=== PATIENT | male | born 1940 | race Caucasian/White ===

== ENCOUNTER 2017-08-20 21:59 | Inpatient (IN) | payer MEDICARE, MEDICAID ==
[2017-08-20 23:44] LABS: Troponin I 0.021 ng/mL (< 0.028)
[2017-08-21 02:28] LABS: Troponin I 0.016 ng/mL (< 0.028)
[2017-08-21] MEDS ORDERED: hydrALAZINE 20 MG/ML VIAL SLOW IVP PRN (07:36)
[2017-08-21] MEDS ORDERED: Ondansetron HCl/PF 4 MG/2 ML Vial IVP PRN (07:36)
[2017-08-21] MEDS ORDERED: Sodium Chloride 0.65% Nasal 44 ML BOT EA NARE PRN (07:36)
[2017-08-21] MEDS ORDERED: Senokot 8.6 MG TAB PO PRN (07:36)
[2017-08-21] MEDS ORDERED: Dextrose 50% Abboject 50 ML SYRINGE SLOW IVP PRN (07:36)
[2017-08-21] MEDS ORDERED: Mag-Al 1200 mg/1200 mg/30 ML UDCUP PO PRN (07:36)
[2017-08-21] MEDS ORDERED: Ondansetron ODT 4 MG TAB PO PRN (07:36)
[2017-08-21] MEDS ORDERED: Dextrose 5% in Water 1,000 ML IV PRN (07:36)
[2017-08-21] MEDS ORDERED: Artificial Tears 18 DROP/0.9 ML EA EYE PRN (07:36)
[2017-08-21] MEDS ORDERED: Loratadine 10 MG TAB PO PRN (07:36)
[2017-08-21] MEDS ORDERED: Zolpidem Tartrate 5 MG TAB PO PRN (07:36)
[2017-08-21] MEDS ORDERED: Milk Of Magnesia 30 ML UDCUP PO PRN (07:36)
[2017-08-21] MEDS ORDERED: Acetaminophen 325 MG TAB PO PRN (07:36)
[2017-08-21] MEDS ORDERED: Loperamide HCl 2 MG CAP PO PRN (07:36)
[2017-08-21] MEDS ORDERED: Chloraseptic Spray 180 ml Bottle PO PRN (07:36)
[2017-08-21] MEDS ORDERED: Nitroglycerin 0.4 MG TAB (25 Tab Bottle) SL PRN (07:36)
[2017-08-21] MEDS ORDERED: HumaLOG 300 UNITS/3 ML VIAL SC PRN (07:36)
[2017-08-21] MEDS ORDERED: Eucerin (Mineral Oil/Petrolatum,White) 30 gm Jar TOP PRN (07:36)
[2017-08-21 08:14] LABS: #Eosinphils 0.1 thou/uL (0.0-0.7); #Lymphocytes 1.2 thou/uL (1.20-3.40); #Monocytes 0.4 thou/uL (0.11-0.59); #Neutrophils 3.8 thou/uL (1.40-6.50); %Basophils 0.6 % (0.0-1.0); %Eosinophils 2.5 % (0.0-10.0); %Monocytes 6.8 % (0.0-10.0); Hemoglobin 9.9 g/dL (14.0-18.0); Mean Corpuscular HGB CONC 31.6 g/dL (32.0-36.0); Mean Corpuscular Hemoglobin 27.9 pg (27.0-31.0); Mean Corpuscular Volume 88.2 fl (80.0-94.0); Mean Platelet Volume 8.5 fL (7.4-10.4); Platelet Count 192 thou/uL (130-400); RBC Distribution Width 20.1 % (11.5-14.5); Red Blood Cell (RBC) Count 3.56 mill/uL (4.70-6.10); White Blood Cell (WBC) Count 5.5 thou/uL (4.8-10.8)
[2017-08-21 08:32] LABS: ALT (SGPT) 10 U/L (8-55); AST (SGOT) 24 U/L (5-34); Albumin 2.5 g/dL (3.4-4.8); Alkaline Phosphatase 197 U/L (40-150); Anion Gap 14 mmol/L (10-20); BUN (Urea Nitrogen) 37 mg/dL (8.4-25.7); Bilirubin, Total 1.1 mg/dL (0.2-1.2); Calc. Creatinine Clearance 0 mL/min (70-130); Calcium 8.3 mg/dL (7.8-10.44); Carbon Dioxide 20 mmol/L (23-31); Chloride 108 mmol/L (98-107); Estimated GFR-MDRD 38; Globulin 3.6 g/dL (2.4-3.5); Glucose 224 mg/dL (83-110); Potassium 4.5 mmol/L (3.5-5.1); Protein, Total 6.1 g/dL (5.8-8.1); Sodium 137 mmol/L (136-145); Uric Acid 10.6 mg/dL (3.5-7.2)
[2017-08-21 09:20] LABS: Band 2 % (5-11); Eosinophils 3 % (0-10); Lymphocytes 24 % (21-51); Monocytes 3 % (0-10)
[2017-08-21 09:21] LABS: Hypochromia SLIGHT = 6-15 cells (100X) (0-5/hpf); Neutrophil 67 % (42-75); Polychromasia SLIGHT = 2-3 cells (100X) (0-2/hpf)
[2017-08-21] MEDS ORDERED: Furosemide 40 MG/4 ML VIAL ONE (10:50)
[2017-08-21] MEDS ORDERED: Oxymetazoline HCl 0.05% ( 15 ML ) ONE (10:53)
[2017-08-21] MEDS ORDERED: Benzonatate 100 MG CAP PO PRN (11:04)
[2017-08-21] MEDS ORDERED: Heparin 5,000 UNITS/ML VIAL ONE (11:17)
[2017-08-21] MEDS ORDERED: Clopidogrel Bisulfate 75 MG TAB ONE (11:17)
--- NOTE | 2017-08-21 12:09 | HP ---
PRIMARY CARE PHYSICIAN: Dr. Michelle Morataya. REASON FOR ADMISSION: Transfer from [facility] for acute on chronic systolic and di astolic congestive heart failure exacerbation, right pleural effusion. HISTORY OF PRESENT ILLNESS: This is a 77-year-old male who has underlying history of chronic systoli c and diastolic heart failure with EF 40% to 45%, who initially went to [facility] w ith complaint of increasing shortness of breath. The patient was not able to lie down flat. He was having classic history of orthopnea. He was having increasing lower extremity edema. He was feeling more congested. He was having shortness of breath even after a little effort and that is why he lidia t to [facility]. Over there, the patient was afebrile and hemodynamically stable. The patient was given Lasix 40 mg IV push there and subsequently he was transferred to our emergency room for further evaluation and treatment. Over there routine blood test also showed elevated BNP, a s well as elevated creatinine. He was having anasarca. The patient was feeling that his weight is s ignificantly improved. He was also feeling nasal congestion. Initial EKG showed normal sinus rhythm. In our emergency room, the patient was given Lasix 40 mg ano ther dose and subsequently he was admitted to telemetry floor. ALLERGIES: AMOXICILLIN, CODEINE, LEVOFLOXACIN, and NAPROXEN. CURRENT HOME MEDICATIONS: Allopurinol 150 mg p.o. daily, aspirin 81 mg p.o. daily, Azopt ophthalmic drops daily, Plavix 75 mg p.o. daily, Flonase nasal spray daily, Lasix 20 mg p.o. daily, insulin 70/3 0, 20 units in the morning and 10 units in the evening, DuoNeb q.6 hourly p.r.n., Cozaar 100 mg p.o. daily, pravastatin 20 mg p.o. at bedtime, and Travatan Z 1 drop each eye every p.m. REVIEW OF SYSTEMS: The following complete review of systems was negative, unless otherwise mentioned in the HPI or below: Constitutional: Weight loss or gain, ability to conduct usual activities. Skin: Rash, itching. Eyes: Double vision, pain. ENT/Mouth: Nose bleeding, neck stiffness, pain, tenderness. Cardiovascular: Palpitations, dyspnea on exertion, orthopnea. Respiratory: Shortness of breath, wheezing, cough, hemoptysis, fever or night sweats. Gastrointestinal: Poor appetite, abdominal pain, heartburn, nausea, vomiting, constipation, or diarrh ea. Genitourinary: Urgency, frequency, dysuria, nocturia. Musculoskeletal: Pain, swelling. Neurologic/Psychiatric: Anxiety, depression. Allergy/Immunologic: Skin rash, bleeding tendency. Please see my HPI for pertinent positives and negatives. All other review of systems reviewed and ne gative except as mentioned in the HPI. 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 PAST SURGICAL HISTORY: CABG, amputation of fifth digit on the right foot, multiple toe amputations o n the left foot, and right below knee amputation. The patient also has plan for left BKA. PAST PSYCHIATRIC HISTORY: Reviewed and negative. SOCIAL HISTORY: The patient lives at home with the family. No history of tobacco, alcohol, or illic it drug abuse. FAMILY HISTORY: Diabetes, hypertension runs among several family members. No strong family history of coronary artery disease, stroke, or cancer. EMERGENCY ROOM COURSE: The patient has given Lasix 40 mg. PHYSICAL EXAMINATION: VITAL SIGNS: Currently, blood pressure 111/56, pulse 65, respiratory rate 20, temperature 98.1, satu ration 100% on room air, and weight 86.2 kilograms. GENERAL: The patient is currently alert, awake, dyspneic, no obvious acute distress. HEENT: Head is normocephalic, atraumatic. Eyes: Pupils round, reactive to light. Extraocular musc les intact. ENT: Oropharynx within normal limits. Moist mucous membranes. No oral lesions. No pharyngeal eryt que, no exudate. NECK: Supple, no JVD, no thyromegaly, no carotid bruits. LUNGS: Bibasilar rales noted. Air entry reduced on the right side. Few end expiratory wheezing hea rd. CARDIAC: S1 and S2 regular. No murmur, no gallop, no rub. ABDOMEN: Soft, bowel sounds present, nontender, nondistended. No organomegaly, no mass, no suprapub ic tenderness. BACK: Unremarkable, no CVA tenderness. EXTREMITIES: Upper extremity passive movement of all joints are normal though upper extremity edema noted. Lower extremity, right below knee amputation, but patient has edema over right thigh. Left l ower extremity wrapped with a dressing. NEUROLOGIC: Nonfocal examination. Speech normal. SKIN: No skin rash. PSYCHIATRIC: Normal affect. HEMATOLOGICAL: No lymphadenopathy. SIGNIFICANT LABORATORY DATA: Chest x-ray based on my review, right basilar pleural and parenchymal o pacity with moderate right pleural effusion and passive atelectases. CBC: WBC 5.9, hemoglobin 10.2, platelets 191. INR 1.3. BMP shows sodium 139, potassium 4.7, chloride 108, carbon dioxide 18, BUN 35, creatinine 1.89, glucose 213, calcium 8.3, lactic acid 1.5, magnesium 1.7, and LFT: AST 25, ALT 13, alkaline phosphatase 224, albumin 2.6, lipase 9. BNP 2920.3. Cardiac enzymes negative x3, CK 60 . Urinalysis normal. Blood culture negative. ASSESSMENT AND PLAN: 1. Acute on chronic systolic and diastolic congestive heart failure exacerbation. This patient's EF is 40% to 45% with diastolic dysfunction based on echocardiography in 2016. Clinically, this patien t has orthopnea and increasing edema, weight gain, and dyspnea, all consistent with congestive heart failure exacerbation. This patient will need admission, he has significant fluid overload status, so require at least more than 2 midnights to make him euvolemic. We will continue with Lasix 40 mg IV b.i.d. Fluid restriction 1500 mL per day. We will only give him Coreg 3.125 mg twice daily and arnold nopril 2.5 mg p.o. daily. We will monitor input and output and daily weight. 2. Acute kidney failure, suspecting from cardiorenal syndrome. The patient has diuresis and still h is creatinine is improving and we will monitor renal function. The patient also has a history of andrey betes that also contributes to his renal failure. He might have underlying diabetic nephropathy give n hypoalbuminemia. 3. Diabetes type 2. We will monitor Accu-Chek before meals and at bedtime and insulin as per slidin g scale per protocol. Once we verify his home medication and then will resume his insulin 70/30 whil e in hospital. 4. Coronary artery disease with a history of coronary artery bypass grafting. We will continue aspi rin 81 mg p.o. daily, Coreg 3.125 mg twice daily, Plavix 75 mg p.o. daily, and lisinopril 2.5 mg p.o. daily along with Zocor 10 mg p.o. at bedtime. 5. Hypertension. Currently well controlled. Continue Coreg, lisinopril as above. 6. Peripheral vascular disease with a history of below knee amputation and plan for left below knee amputation as well. At this point, the patient will have medical treatment with aspirin, Plavix, and statin therapy. 7. Anemia, normocytic, normochromic. We will continue ferrous sulfate 325 mg p.o. daily. 8. Glaucoma. The patient will have continuous Azopt and Travatan Z ophthalmic drops as per home dos age. 9. Dyslipidemia. We will continue Zocor 10 mg p.o. at bedtime. 10. Gout. We will continue allopurinol 100 mg p.o. daily. 11. Deep venous thrombosis prophylaxis, heparin 5000 units subcu twice daily. 12. Gastrointestinal prophylaxis, Protonix 40 mg p.o. daily. CODE STATUS: Patient is FULL CODE. The patient's is surrogate decision maker. Disposition plan based on clinical course. We are expecting patient's stay in hospital more than 2 m idnights. Plan of care discussed with the patient in detail.
[2017-08-21 14:11] LABS: Bilirubin Negative (Negative); Blood, Urine Moderate (Negative); Clarity CLOUDY (Clear); Glucose, Urine (Dipstick) Negative (Negative); Leukocyte Large (Negative); Nitrite Negative (Negative); Protein, Urine (Dipstick) Negative (Neg-Trace); Specific Gravity, Urine 1.014 (1.002-1.036); Urobilinogen 0.2 mg/dL (0.2-1.0)
[2017-08-21 14:12] LABS: Bacteria/HPF None Seen HPF (None Seen); Squamous Epithelial 0-3 HPF (0-3)
[2017-08-21 14:14] LABS: Pathc Cast-AUWi Flag 2.84 (0-2.49); Yeast-AUWi Flag 39.4 (0-25.0)
[2017-08-21 14:29] LABS: Yeast-All Forms None Seen HPF (None Seen)
[2017-08-21 14:30] LABS: Hyaline Casts/LPF 0-3 HYALINE CAST LPF (0-3 Hyaline)
[2017-08-21] MEDS: Furosemide 40 MG/4 ML VIAL SLOW IVP SCH (15:52)
[2017-08-21] MEDS: Clopidogrel Bisulfate 75 MG TAB PO SCH (15:53)
[2017-08-21] MEDS: Ubidecarenone 50 MG CAP PO SCH (15:53)
[2017-08-21] MEDS: Lisinopril 2.5 MG TAB PO SCH (15:53)
[2017-08-21] MEDS: Heparin 5,000 UNITS/ML VIAL SC SCH ×2 (15:53→21:10)
[2017-08-21] MEDS: Allopurinol 100 MG TAB PO SCH (15:54)
[2017-08-21] MEDS: Carvedilol 3.125 MG TAB PO SCH ×2 (15:54→21:36)
[2017-08-21] MEDS: HumaLOG 300 UNITS/3 ML VIAL SC PRN (18:04)
[2017-08-21] MEDS: Simvastatin 5 MG TAB PO SCH (21:10)
[2017-08-22] MEDS: Diabetic Tussin 200 MG/10 ML UDCUP PO PRN (01:48)
[2017-08-22] MEDS: Furosemide 40 MG/4 ML VIAL SLOW IVP SCH ×2 (05:40→14:56)
[2017-08-22] MEDS ORDERED: cefTRIAXone\\ROCEPHIN 1 GM in Sodium Chloride 0.9% 100 ML IVPB SCH (07:30)
[2017-08-22 08:12] LABS: #Eosinphils 0.1 thou/uL (0.0-0.7); #Lymphocytes 1.3 thou/uL (1.20-3.40); #Monocytes 0.4 thou/uL (0.11-0.59); #Neutrophils 3.1 thou/uL (1.40-6.50); %Basophils 0.3 % (0.0-1.0); %Eosinophils 2.9 % (0.0-10.0); %Lymphocytes 26.8 % (21.0-51.0); %Monocytes 7.9 % (0.0-10.0); %Neutrophils 62.1 % (42.0-75.0); Anion Gap 13 mmol/L (10-20); BUN (Urea Nitrogen) 37 mg/dL (8.4-25.7); Calc. Creatinine Clearance 51 mL/min (70-130); Calcium 8.2 mg/dL (7.8-10.44); Carbon Dioxide 24 mmol/L (23-31); Chloride 105 mmol/L (98-107); Estimated GFR-MDRD 39; Glucose 140 mg/dL (83-110); Hemoglobin 9.7 g/dL (14.0-18.0); Magnesium 1.4 mg/dL (1.6-2.6); Mean Corpuscular Hemoglobin 28.3 pg (27.0-31.0); Mean Corpuscular Volume 88.4 fl (80.0-94.0); Mean Platelet Volume 8.1 fL (7.4-10.4); Platelet Count 192 thou/uL (130-400); Potassium 4.1 mmol/L (3.5-5.1); RBC Distribution Width 19.9 % (11.5-14.5); Red Blood Cell (RBC) Count 3.42 mill/uL (4.70-6.10); Sodium 138 mmol/L (136-145); White Blood Cell (WBC) Count 4.9 thou/uL (4.8-10.8)
[2017-08-22] MEDS ORDERED: Metolazone 5 MG TAB PO SCH (08:30)
[2017-08-22] MEDS: Ubidecarenone 50 MG CAP PO SCH (08:44)
[2017-08-22] MEDS: Lisinopril 2.5 MG TAB PO SCH (08:44)
[2017-08-22] MEDS: Heparin 5,000 UNITS/ML VIAL SC SCH ×2 (08:44→20:42)
[2017-08-22] MEDS: cefTRIAXone\\ROCEPHIN 1 GM, Syringe 0.4 ML in Sterile Water 9.6 ML SLOW IVP SCH (08:45)
[2017-08-22] MEDS: Clopidogrel Bisulfate 75 MG TAB PO SCH (08:45)
[2017-08-22] MEDS: Carvedilol 3.125 MG TAB PO SCH ×2 (08:45→16:41)
[2017-08-22] MEDS: Allopurinol 100 MG TAB PO SCH (08:45)
[2017-08-22] MEDS ORDERED: Magnesium 2 GM/NS 0.9% 100 ML 2 GM in Premix Bag 1 BAG IVPB SCH (09:30)
[2017-08-22] MEDS: Fluticasone Propionate Nasal Spray 16 gm Bottle NASAL SCH (11:32)
--- NOTE | 2017-08-22 11:38 | PDOC.PN ---
- Subjective Encounter Start Date: 08/22/17 Encounter Start Time: 07:30 -: old records requested/rev pt is feeling better, less dyspnea, less cough, no fever, less edema - Objective Resuscitation Status: Resuscitation Status FULL:Full Resuscitation MAR Reviewed: Yes Vital Signs & Weight: Vital Signs (12 hours) Temp Pulse Resp BP Pulse Ox 08/22/17 08:44 70 08/22/17 07:57 70 14 08/22/17 07:45 99.6 F 66 18 114/53 L 95 08/22/17 04:00 98.4 F 65 20 99/52 L 93 L 08/22/17 00:43 97.9 F 64 18 100/52 L 95 08/21/17 23:39 63 16 95 Weight Admit Weight 210 lb Weight 213 lb 11.2 oz I&O: 08/21/17 08/22/17 08/23/17 06:59 06:59 06:59 Intake Total 554 Output Total 1750 Balance -1196 Result Diagrams: 08/22/17 07:36 08/22/17 07:36 Additional Labs: Accuchecks 08/22/17 08/22/17 08/21/17 10:44 05:39 21:10 POC Glucose 223 H 144 H 256 H 08/21/17 17:38 POC Glucose 292 H EKG Reviewed by me: Yes (nsr) Phys Exam - Physical Examination Constitutional: NAD HEENT: PERRLA, moist MMs, sclera anicteric Neck: no JVD, supple Respiratory: no wheezing, no rales, no rhonchi basilar rales, reduced air entry at right side Cardiovascular: RRR, no significant murmur, no rub Gastrointestinal: soft, non-tender, no distention, positive bowel sounds Musculoskeletal: edema present right BKA Neurological: non-focal, normal sensation josue+ Lymphatic: no nodes Psychiatric: normal affect Skin: no rash, normal turgor Dx/Plan (1) Acute kidney failure Status: Acute Comment: cardiorenal syndrome, improving (2) Acute on chronic combined systolic and diastolic CHF (congestive heart failure) Code(s): I50.43 - ACUTE ON CHRONIC COMBINED SYSTOLIC AND DIASTOLIC HRT FAIL Status: Acute (3) Hypomagnesemia Code(s): E83.42 - HYPOMAGNESEMIA Status: Acute (4) Pleural effusion, right Code(s): J90 - PLEURAL EFFUSION, NOT ELSEWHERE CLASSIFIED Status: Acute (5) UTI (urinary tract infection) Status: Acute (6) Anemia, normocytic normochromic Code(s): D64.9 - ANEMIA, UNSPECIFIED Status: Chronic (7) CAD (coronary artery disease) Code(s): I25.10 - ATHSCL HEART DISEASE OF [place] CORONARY ARTERY W/O ANG PCTRS Status: Chronic (8) Dyslipidemia Code(s): E78.5 - HYPERLIPIDEMIA, UNSPECIFIED Status: Chronic Comment: (9) Glaucoma Code(s): H40.9 - UNSPECIFIED GLAUCOMA Status: Chronic (10) Gout Code(s): M10.9 - GOUT, UNSPECIFIED Status: Chronic (11) Hypertension Code(s): I10 - ESSENTIAL (PRIMARY) HYPERTENSION Status: Chronic Qualifiers: Comment: (12) PVD (peripheral vascular disease) Code(s): I73.9 - PERIPHERAL VASCULAR DISEASE, UNSPECIFIED Status: Chronic - Plan cont current plan of care, continue antibiotics * continue IV lasix * add zaroxolyn * renal function improving * will replace magnesium * will start rocephin for UTI * send urine culture * repeat labs tomorrow * medication reviewed as below * symptomatic treatment. Review of Systems - Review of Systems Constitutional: negative: fever, chills, sweats, weakness, malaise, other Eyes: negative: Pain, Vision Change, Conjunctivae Inflammation, Eyelid Inflammation, Redness, Other ENT: negative: Ear Pain, Ear Discharge, Nose Pain, Nose Discharge, Nose Congestion, Mouth Pain, Mouth Swelling, Throat Pain, Throat Swelling, Other Respiratory: Cough, SOB with Excertion. negative: Dry, Shortness of Breath, Hemoptysis, Pleuritic Pain, Sputum, Wheezing Cardiovascular: orthopnea, edema. negative: chest pain, palpitations, paroxysmal nocturnal dyspnea, light headedness, other Gastrointestinal: negative: Nausea, Vomiting, Abdominal Pain, Diarrhea, Constipation, Melena, Hematochezia, Other Genitourinary: negative: Dysuria, Frequency, Incontinence, Hematuria, Retention , Other Musculoskeletal: negative: Neck Pain, Shoulder Pain, Arm Pain, Back Pain, Hand Pain, Leg Pain, Foot Pain, Other - Medications/Allergies Allergies/Adverse Reactions: Allergies Allergy/AdvReac Type Severity Reaction Status Date / Time amoxicillin Allergy Verified 08/21/17 13:13 codeine Allergy Verified 08/21/17 13:13 levofloxacin [From Levaquin] Allergy Verified 08/21/17 13:13 naproxen Allergy Verified 08/21/17 13:13 Medications: Current Medications Acetaminophen (Tylenol) 650 mg PO Q4H PRN PRN Reason: Headache/Fever or Pain Al Hydroxide/Mg Hydroxide (Maalox) 30 ml PO Q6H PRN PRN Reason: Heartburn or Indigestion Albuterol/Ipratropium (Duoneb) 3 ml NEB [id number] [facility] Last Admin: 08/22/17 07:57 Dose: 3 ml Allopurinol (Zyloprim) 100 mg PO DAILY [facility] Last Admin: 08/22/17 08:45 Dose: 100 mg Artificial Tears (Tears Naturale) 0 drop EA EYE PRN PRN PRN Reason: Dry Eyes Aspirin (Aspirin Chewable) 81 mg PO DAILY [facility] Last Admin: 08/22/17 08:45 Dose: 81 mg Benzonatate (Tessalon) 100 mg PO Q4H PRN PRN Reason: Cough Carvedilol (Coreg) 3.125 mg PO BID-[facility] Last Admin: 08/22/17 08:45 Dose: 3.125 mg Clopidogrel Bisulfate (Plavix) 75 mg PO DAILY [facility] Last Admin: 08/22/17 08:45 Dose: 75 mg Coenzyme Q10 (Coenzyme Q10) 100 mg PO DAILY [facility] Last Admin: 08/22/17 08:44 Dose: 100 mg Dextrose/Water (Dextrose 50%) 25 gm SLOW IVP PRN PRN PRN Reason: Hypoglycemia Fluticasone Propionate (Flonase Nasal [place]) 0 gm NASAL DAILY [facility] Furosemide (Lasix) 40 mg SLOW IVP 0600,1400 [facility] Last Admin: 08/22/17 05:40 Dose: 40 mg Glucagon (Glucagon) 1 mg IM PRN PRN PRN Reason: Hypoglycemia Guaifenesin (Robitussin Sf) 200 mg PO Q4H PRN PRN Reason: Cough Last Admin: 08/22/17 01:48 Dose: 200 mg Heparin Sodium (Porcine) (Heparin) 5,000 units SC BID [facility] Last Admin: 08/22/17 08:44 Dose: 5,000 units Hydralazine HCl (Apresoline) 10 mg SLOW IVP Q4H PRN PRN Reason: Systolic BP > 180 Dextrose/Water (D5w) 1,000 mls @ 0 mls/hr IV .Q0M PRN; As Directed PRN Reason: Hypoglycemia Ceftriaxone Sodium 1 gm/ (Syringe 0.4 ml/ Sterile Water) 10 mls @ 120 mls/hr SLOW IVP 0800 [facility] Last Admin: 08/22/17 08:45 Dose: 10 mls Insulin Human Lispro (Humalog) 0 units SC .MODERATE SLIDING SC PRN PRN Reason: Moderate Correctional Scale Last Admin: 08/21/17 18:04 Dose: 6 units Insulin Human Lispro (Humalog) 0 units SC .BEDTIME SLIDING SC PRN PRN Reason: Bedtime Correctional Scale Last Admin: 08/21/17 21:11 Dose: 3 unit Lisinopril (Zestril) 2.5 mg PO DAILY [facility] Last Admin: 08/22/17 08:44 Dose: 2.5 mg Loperamide HCl (Imodium) 2 mg PO PRN PRN PRN Reason: Diarrhea/Loose Stools Loratadine (Claritin) 10 mg PO DAILYPRN PRN PRN Reason: Sinus Symptoms Magnesium Hydroxide (Milk Of Magnesium) 30 ml PO DAILYPRN PRN PRN Reason: Constipation Metolazone (Zaroxolyn) 5 mg PO 0830 [facility] Last Admin: 08/22/17 08:45 Dose: 5 mg Mineral Oil/White Petrolatum (Eucerin Cream) 0 gm TOP BIDPRN PRN PRN Reason: Dry Skin Nitroglycerin (Nitrostat) 0.4 mg SL Q5MIN PRN PRN Reason: Chest Pain Ondansetron HCl (Zofran Odt) 4 mg PO Q6H PRN PRN Reason: Nausea/Vomiting Ondansetron HCl (Zofran) 4 mg IVP Q6H PRN PRN Reason: Nausea/Vomiting Pantoprazole Sodium (Protonix) 40 mg PO DAILY [facility] Last Admin: 08/22/17 08:45 Dose: 40 mg Phenol (Chloraseptic [place] 180 Ml Bot) 0 ml PO PRN PRN PRN Reason: Sore Throat Senna (Senokot) 2 tab PO HSPRN PRN PRN Reason: Constipation Simvastatin (Zocor) 10 mg PO [facility] Last Admin: 08/21/17 21:10 Dose: 10 mg Sodium Chloride ([place] Nasal [place] 0.65%) 0 ml EA NARE QIDPRN PRN PRN Reason: Nasal Congestion Zolpidem Tartrate (Ambien) 5 mg PO HSPRN PRN PRN Reason: Insomnia
[2017-08-22] MEDS: HumaLOG 300 UNITS/3 ML VIAL SC PRN ×2 (11:48→16:41)
[2017-08-22] MEDS: Simvastatin 5 MG TAB PO SCH (20:43)
[2017-08-23] MEDS: Furosemide 40 MG/4 ML VIAL SLOW IVP SCH ×2 (05:23→09:10)
[2017-08-23 05:29] LABS: Anion Gap 11 mmol/L (10-20); BUN (Urea Nitrogen) 38 mg/dL (8.4-25.7); Calc. Creatinine Clearance 44 mL/min (70-130); Calcium 8.5 mg/dL (7.8-10.44); Carbon Dioxide 28 mmol/L (23-31); Chloride 102 mmol/L (98-107); Estimated GFR-MDRD 35; Glucose 169 mg/dL (83-110); Magnesium 1.7 mg/dL (1.6-2.6); Potassium 4.2 mmol/L (3.5-5.1); Sodium 137 mmol/L (136-145)
[2017-08-23] MEDS: Lisinopril 2.5 MG TAB PO SCH (08:55)
[2017-08-23] MEDS: Carvedilol 3.125 MG TAB PO SCH ×2 (08:55→17:52)
[2017-08-23] MEDS: Clopidogrel Bisulfate 75 MG TAB PO SCH (08:55)
[2017-08-23] MEDS: Heparin 5,000 UNITS/ML VIAL SC SCH ×2 (08:55→21:27)
[2017-08-23] MEDS: Allopurinol 100 MG TAB PO SCH (08:55)
[2017-08-23] MEDS: Ubidecarenone 50 MG CAP PO SCH (08:55)
[2017-08-23] MEDS: cefTRIAXone\\ROCEPHIN 1 GM, Syringe 0.4 ML in Sterile Water 9.6 ML SLOW IVP SCH (08:56)
[2017-08-23] MEDS: Fluticasone Propionate Nasal Spray 16 gm Bottle NASAL SCH (08:59)
--- NOTE | 2017-08-23 10:27 | PDOC.PN ---
- Subjective Encounter Start Date: 08/23/17 Encounter Start Time: 07:10 Patient seen and examined. No new complaints. No overnight events - Objective Resuscitation Status: Resuscitation Status FULL:Full Resuscitation MAR Reviewed: Yes Vital Signs & Weight: Vital Signs (12 hours) Temp Pulse Resp BP BP Pulse Ox 08/23/17 08:55 67 123/61 08/23/17 08:00 97.7 F 67 18 123/61 100 08/23/17 07:45 97.5 F L 70 14 95 08/23/17 07:28 70 14 08/23/17 03:35 97.5 F L 69 22 H 92/54 L 94 L 08/23/17 01:22 69 14 92 L 08/22/17 23:29 98.6 F 68 18 95/61 92 L Weight Admit Weight 210 lb Weight 206 lb 9.17 oz I&O: 08/22/17 08/23/17 08/24/17 06:59 06:59 06:59 Intake Total 554 1420 Output Total 1750 3000 Balance -1196 -1580 Result Diagrams: 08/22/17 07:36 08/23/17 04:56 Additional Labs: Accuchecks 08/23/17 08/22/17 08/22/17 06:00 21:04 16:41 POC Glucose 173 H 143 H 185 H 08/22/17 10:44 POC Glucose 223 H EKG Reviewed by me: Yes (nsr) Phys Exam - Physical Examination Constitutional: NAD HEENT: PERRLA, moist MMs, sclera anicteric Neck: no JVD, supple Respiratory: no wheezing, no rhonchi basilar rales reduced, air entry reduced on right side Cardiovascular: RRR, no significant murmur, no rub Gastrointestinal: soft, non-tender, no distention, positive bowel sounds Musculoskeletal: pulses present, edema present right BKA, josue+ Neurological: non-focal, normal sensation Lymphatic: no nodes Psychiatric: normal affect Skin: no rash, normal turgor Dx/Plan (1) Acute kidney failure Status: Acute Comment: cardiorenal syndrome (2) Acute on chronic combined systolic and diastolic CHF (congestive heart failure) Code(s): I50.43 - ACUTE ON CHRONIC COMBINED SYSTOLIC AND DIASTOLIC HRT FAIL Status: Acute (3) Hypomagnesemia Code(s): E83.42 - HYPOMAGNESEMIA Status: Resolved (4) Pleural effusion, right Code(s): J90 - PLEURAL EFFUSION, NOT ELSEWHERE CLASSIFIED Status: Acute (5) UTI (urinary tract infection) Status: Acute (6) Anemia, normocytic normochromic Code(s): D64.9 - ANEMIA, UNSPECIFIED Status: Chronic (7) CAD (coronary artery disease) Code(s): I25.10 - ATHSCL HEART DISEASE OF [place] CORONARY ARTERY W/O ANG PCTRS Status: Chronic (8) Dyslipidemia Code(s): E78.5 - HYPERLIPIDEMIA, UNSPECIFIED Status: Chronic Comment: (9) Glaucoma Code(s): H40.9 - UNSPECIFIED GLAUCOMA Status: Chronic (10) Gout Code(s): M10.9 - GOUT, UNSPECIFIED Status: Chronic (11) Hypertension Code(s): I10 - ESSENTIAL (PRIMARY) HYPERTENSION Status: Chronic Qualifiers: Comment: (12) PVD (peripheral vascular disease) Code(s): I73.9 - PERIPHERAL VASCULAR DISEASE, UNSPECIFIED Status: Chronic - Plan cont current plan of care, plan discussed w/ family, continue antibiotics * today will dc zaroxolyn and reduce dose of lasix for high creatinine * will repeat chest xray tomorrow * medication reviewed as below * symptomatic treatment * continue rocephin * overall stable and improving * expecting discharge in 24-48 hours. Review of Systems - Review of Systems ENT: negative: Ear Pain, Ear Discharge, Nose Pain, Nose Discharge, Nose Congestion, Mouth Pain, Mouth Swelling, Throat Pain, Throat Swelling, Other Respiratory: negative: Cough, Dry, Shortness of Breath, Hemoptysis, SOB with Excertion, Pleuritic Pain, Sputum, Wheezing Cardiovascular: negative: chest pain, palpitations, orthopnea, paroxysmal nocturnal dyspnea, edema, light headedness, other Gastrointestinal: negative: Nausea, Vomiting, Abdominal Pain, Diarrhea, Constipation, Melena, Hematochezia, Other Genitourinary: negative: Dysuria, Frequency, Incontinence, Hematuria, Retention , Other Musculoskeletal: negative: Neck Pain, Shoulder Pain, Arm Pain, Back Pain, Hand Pain, Leg Pain, Foot Pain, Other - Medications/Allergies Allergies/Adverse Reactions: Allergies Allergy/AdvReac Type Severity Reaction Status Date / Time amoxicillin Allergy Verified 08/21/17 13:13 codeine Allergy Verified 08/21/17 13:13 levofloxacin [From Levaquin] Allergy Verified 08/21/17 13:13 naproxen Allergy Verified 08/21/17 13:13 Medications: Current Medications Acetaminophen (Tylenol) 650 mg PO Q4H PRN PRN Reason: Headache/Fever or Pain Al Hydroxide/Mg Hydroxide (Maalox) 30 ml PO Q6H PRN PRN Reason: Heartburn or Indigestion Albuterol/Ipratropium (Duoneb) 3 ml NEB [id number] REPLACED [facility] Last Admin: 08/23/17 07:28 Dose: 3 ml Allopurinol (Zyloprim) 100 mg PO DAILY [facility] Last Admin: 08/23/17 08:55 Dose: 100 mg Artificial Tears (Tears Naturale) 0 drop EA EYE PRN PRN PRN Reason: Dry Eyes Aspirin (Aspirin Chewable) 81 mg PO DAILY [facility] Last Admin: 08/23/17 08:55 Dose: 81 mg Benzonatate (Tessalon) 100 mg PO Q4H PRN PRN Reason: Cough Last Admin: 08/22/17 20:48 Dose: 100 mg Carvedilol (Coreg) 3.125 mg PO BID-[facility] Last Admin: 08/23/17 08:55 Dose: 3.125 mg Clopidogrel Bisulfate (Plavix) 75 mg PO DAILY [facility] Last Admin: 08/23/17 08:55 Dose: 75 mg Coenzyme Q10 (Coenzyme Q10) 100 mg PO DAILY [facility] Last Admin: 08/23/17 08:55 Dose: 100 mg Dextrose/Water (Dextrose 50%) 25 gm SLOW IVP PRN PRN PRN Reason: Hypoglycemia Fluticasone Propionate (Flonase Nasal [place]) 0 gm NASAL DAILY [facility] Last Admin: 08/23/17 08:59 Dose: 2 spr Furosemide (Lasix) 40 mg SLOW IVP DAILY [facility] Last Admin: 08/23/17 09:10 Dose: Not Given Glucagon (Glucagon) 1 mg IM PRN PRN PRN Reason: Hypoglycemia Guaifenesin (Robitussin Sf) 200 mg PO Q4H PRN PRN Reason: Cough Last Admin: 08/22/17 01:48 Dose: 200 mg Heparin Sodium (Porcine) (Heparin) 5,000 units SC BID [facility] Last Admin: 08/23/17 08:55 Dose: 5,000 units Hydralazine HCl (Apresoline) 10 mg SLOW IVP Q4H PRN PRN Reason: Systolic BP > 180 Dextrose/Water (D5w) 1,000 mls @ 0 mls/hr IV .Q0M PRN; As Directed PRN Reason: Hypoglycemia Ceftriaxone Sodium 1 gm/ (Syringe 0.4 ml/ Sterile Water) 10 mls @ 120 mls/hr SLOW IVP 0800 [facility] Last Admin: 08/23/17 08:56 Dose: 10 mls Insulin Human Lispro (Humalog) 0 units SC .MODERATE SLIDING SC PRN PRN Reason: Moderate Correctional Scale Last Admin: 08/22/17 16:41 Dose: 2 units Insulin Human Lispro (Humalog) 0 units SC .BEDTIME SLIDING SC PRN PRN Reason: Bedtime Correctional Scale Last Admin: 08/21/17 21:11 Dose: 3 unit Lisinopril (Zestril) 2.5 mg PO DAILY [facility] Last Admin: 08/23/17 08:55 Dose: 2.5 mg Loperamide HCl (Imodium) 2 mg PO PRN PRN PRN Reason: Diarrhea/Loose Stools Loratadine (Claritin) 10 mg PO DAILYPRN PRN PRN Reason: Sinus Symptoms Magnesium Hydroxide (Milk Of Magnesium) 30 ml PO DAILYPRN PRN PRN Reason: Constipation Mineral Oil/White Petrolatum (Eucerin Cream) 0 gm TOP BIDPRN PRN PRN Reason: Dry Skin Nitroglycerin (Nitrostat) 0.4 mg SL Q5MIN PRN PRN Reason: Chest Pain Ondansetron HCl (Zofran Odt) 4 mg PO Q6H PRN PRN Reason: Nausea/Vomiting Ondansetron HCl (Zofran) 4 mg IVP Q6H PRN PRN Reason: Nausea/Vomiting Pantoprazole Sodium (Protonix) 40 mg PO DAILY [facility] Last Admin: 08/23/17 08:55 Dose: 40 mg Phenol (Chloraseptic [place] 180 Ml Bot) 0 ml PO PRN PRN PRN Reason: Sore Throat Senna (Senokot) 2 tab PO HSPRN PRN PRN Reason: Constipation Simvastatin (Zocor) 10 mg PO HS [facility]PL[facility] Last Admin: 08/22/17 20:43 Dose: 10 mg Sodium Chloride ([place] Nasal [place] 0.65%) 0 ml EA NARE QIDPRN PRN PRN Reason: Nasal Congestion Zolpidem Tartrate (Ambien) 5 mg PO HSPRN PRN PRN Reason: Insomnia
[2017-08-23] MEDS: HumaLOG 300 UNITS/3 ML VIAL SC PRN (17:52)
[2017-08-23] MEDS: Diabetic Tussin 200 MG/10 ML UDCUP PO PRN (21:26)
[2017-08-23] MEDS: Simvastatin 5 MG TAB PO SCH (21:27)
[2017-08-24 04:57] LABS: Anion Gap 13 mmol/L (10-20); BUN (Urea Nitrogen) 40 mg/dL (8.4-25.7); Calc. Creatinine Clearance 44 mL/min (70-130); Calcium 8.5 mg/dL (7.8-10.44); Carbon Dioxide 27 mmol/L (23-31); Chloride 103 mmol/L (98-107); Estimated GFR-MDRD 34; Glucose 154 mg/dL (83-110); Potassium 4.5 mmol/L (3.5-5.1); Sodium 138 mmol/L (136-145)
[2017-08-24] MEDS: Fluticasone Propionate Nasal Spray 16 gm Bottle NASAL SCH (08:39)
[2017-08-24] MEDS: Allopurinol 100 MG TAB PO SCH (08:39)
[2017-08-24] MEDS: Carvedilol 3.125 MG TAB PO SCH ×2 (08:39→17:57)
[2017-08-24] MEDS: Clopidogrel Bisulfate 75 MG TAB PO SCH (08:39)
[2017-08-24] MEDS: Furosemide 40 MG/4 ML VIAL SLOW IVP SCH (08:39)
[2017-08-24] MEDS: Ubidecarenone 50 MG CAP PO SCH (08:40)
[2017-08-24] MEDS: Lisinopril 2.5 MG TAB PO SCH (08:40)
[2017-08-24] MEDS: Heparin 5,000 UNITS/ML VIAL SC SCH ×2 (08:40→21:32)
[2017-08-24] MEDS: cefTRIAXone\\ROCEPHIN 1 GM, Syringe 0.4 ML in Sterile Water 9.6 ML SLOW IVP SCH (08:53)
--- NOTE | 2017-08-24 10:05 | RAD ---
CHEST 1 VIEW: Date: 08/24/17 HISTORY: CHF follow-up. COMPARISON: Chest 1 view dated 08/20/17. FINDINGS: Layering effusion on the right is similar. Small left effusion. Compressive atelectasis both lower lo bes. Patient is rotated to the right, limiting evaluation. IMPRESSION: No significant change in the radiographic appearance of the chest. POS: [facility]
--- NOTE | 2017-08-24 11:17 | PDOC.PN ---
- Subjective Encounter Start Date: 08/24/17 Encounter Start Time: 07:30 pt has cough, still has leg edema, his effusion has not improved yet - Objective Resuscitation Status: Resuscitation Status FULL:Full Resuscitation MAR Reviewed: Yes Vital Signs & Weight: Vital Signs (12 hours) Temp Pulse Resp BP Pulse Ox 08/24/17 09:15 98 08/24/17 09:12 66 24 H 98 08/24/17 08:30 98 F 64 16 08/24/17 07:35 98 F 64 16 108/57 L 97 08/24/17 03:56 98.3 F 64 18 94/52 L 91 L 08/24/17 00:13 62 14 99 08/24/17 00:00 98.1 F 63 20 90/51 L 99 Weight Admit Weight 210 lb Weight 193 lb 4 oz I&O: 08/23/17 08/24/17 08/25/17 06:59 06:59 06:59 Intake Total 1420 120 Output Total 3000 700 Balance -1580 -580 Result Diagrams: 08/22/17 07:36 08/24/17 04:25 Additional Labs: Accuchecks 08/24/17 08/24/17 08/23/17 10:53 05:57 20:43 POC Glucose 201 H 148 H 180 H 08/23/17 17:08 POC Glucose 316 H Radiology Reviewed by me: Yes (chest xray) EKG Reviewed by me: Yes (nsr) Phys Exam - Physical Examination Constitutional: NAD HEENT: PERRLA, moist MMs, sclera anicteric Neck: no JVD, supple Respiratory: no wheezing, no rales, no rhonchi reduced air entry at base and on right side Cardiovascular: RRR, no significant murmur, no rub Gastrointestinal: soft, non-tender, no distention, positive bowel sounds josue+ Musculoskeletal: edema present right BKA Neurological: non-focal, normal sensation Psychiatric: normal affect, A&O x 3 Skin: no rash, normal turgor Dx/Plan (1) Acute kidney failure Status: Acute Comment: cardiorenal syndrome (2) Acute on chronic combined systolic and diastolic CHF (congestive heart failure) Code(s): I50.43 - ACUTE ON CHRONIC COMBINED SYSTOLIC AND DIASTOLIC HRT FAIL Status: Acute (3) Hypomagnesemia Code(s): E83.42 - HYPOMAGNESEMIA Status: Resolved (4) Pleural effusion, right Code(s): J90 - PLEURAL EFFUSION, NOT ELSEWHERE CLASSIFIED Status: Acute (5) UTI (urinary tract infection) Status: Acute (6) Anemia, normocytic normochromic Code(s): D64.9 - ANEMIA, UNSPECIFIED Status: Chronic (7) CAD (coronary artery disease) Code(s): I25.10 - ATHSCL HEART DISEASE OF [place] CORONARY ARTERY W/O ANG PCTRS Status: Chronic (8) Dyslipidemia Code(s): E78.5 - HYPERLIPIDEMIA, UNSPECIFIED Status: Chronic Comment: (9) Glaucoma Code(s): H40.9 - UNSPECIFIED GLAUCOMA Status: Chronic (10) Gout Code(s): M10.9 - GOUT, UNSPECIFIED Status: Chronic (11) Hypertension Code(s): I10 - ESSENTIAL (PRIMARY) HYPERTENSION Status: Chronic Qualifiers: Comment: (12) PVD (peripheral vascular disease) Code(s): I73.9 - PERIPHERAL VASCULAR DISEASE, UNSPECIFIED Status: Chronic - Plan cont current plan of care, continue antibiotics, respiratory therapy * continue diuresis * will get pulmonary opinion in case pt benefit from thoracentesis as with more diuresis, his renal function is getting worse * continue fluid restriction * medication reviewed as below * symptomatic treatment. * RADHA murguia Review of Systems - Review of Systems Eyes: negative: Pain, Vision Change, Conjunctivae Inflammation, Eyelid Inflammation, Redness, Other ENT: negative: Ear Pain, Ear Discharge, Nose Pain, Nose Discharge, Nose Congestion, Mouth Pain, Mouth Swelling, Throat Pain, Throat Swelling, Other Respiratory: Cough. negative: Dry, Shortness of Breath, Hemoptysis, SOB with Excertion, Pleuritic Pain, Sputum, Wheezing Cardiovascular: edema. negative: chest pain, palpitations, orthopnea, paroxysmal nocturnal dyspnea, light headedness, other Gastrointestinal: negative: Nausea, Vomiting, Abdominal Pain, Diarrhea, Constipation, Melena, Hematochezia, Other Genitourinary: negative: Dysuria, Frequency, Incontinence, Hematuria, Retention , Other Musculoskeletal: negative: Neck Pain, Shoulder Pain, Arm Pain, Back Pain, Hand Pain, Leg Pain, Foot Pain, Other Skin: negative: Rash, Lesions, Sridhar, Bruising, Other - Medications/Allergies Allergies/Adverse Reactions: Allergies Allergy/AdvReac Type Severity Reaction Status Date / Time amoxicillin Allergy Verified 08/21/17 13:13 codeine Allergy Verified 08/21/17 13:13 levofloxacin [From Levaquin] Allergy Verified 08/21/17 13:13 naproxen Allergy Verified 08/21/17 13:13 Medications: Current Medications Acetaminophen (Tylenol) 650 mg PO Q4H PRN PRN Reason: Headache/Fever or Pain Al Hydroxide/Mg Hydroxide (Maalox) 30 ml PO Q6H PRN PRN Reason: Heartburn or Indigestion Albuterol/Ipratropium (Duoneb) 3 ml NEB [id number] [facility] Last Admin: 08/24/17 09:12 Dose: 3 ml Allopurinol (Zyloprim) 100 mg PO DAILY [facility] Last Admin: 08/24/17 08:39 Dose: 100 mg Artificial Tears (Tears Naturale) 0 drop EA EYE PRN PRN PRN Reason: Dry Eyes Aspirin (Aspirin Chewable) 81 mg PO DAILY [facility] Last Admin: 08/24/17 08:39 Dose: 81 mg Benzonatate (Tessalon) 100 mg PO Q4H PRN PRN Reason: Cough Last Admin: 08/22/17 20:48 Dose: 100 mg Carvedilol (Coreg) 3.125 mg PO BID-[facility] Last Admin: 08/24/17 08:39 Dose: 3.125 mg Clopidogrel Bisulfate (Plavix) 75 mg PO DAILY [facility] Last Admin: 08/24/17 08:39 Dose: 75 mg Coenzyme Q10 (Coenzyme Q10) 100 mg PO DAILY [facility] Last Admin: 08/24/17 08:40 Dose: 100 mg Dextrose/Water (Dextrose 50%) 25 gm SLOW IVP PRN PRN PRN Reason: Hypoglycemia Fluticasone Propionate (Flonase Nasal [place]) 0 gm NASAL DAILY [facility] Last Admin: 08/24/17 08:39 Dose: 2 spr Furosemide (Lasix) 40 mg SLOW IVP DAILY [facility] Last Admin: 08/24/17 08:39 Dose: 40 mg Glucagon (Glucagon) 1 mg IM PRN PRN PRN Reason: Hypoglycemia Guaifenesin (Robitussin Sf) 200 mg PO Q4H PRN PRN Reason: Cough Last Admin: 08/23/17 21:26 Dose: 200 mg Heparin Sodium (Porcine) (Heparin) 5,000 units SC BID [facility] Last Admin: 08/24/17 08:40 Dose: 5,000 units Hydralazine HCl (Apresoline) 10 mg SLOW IVP Q4H PRN PRN Reason: Systolic BP > 180 Dextrose/Water (D5w) 1,000 mls @ 0 mls/hr IV .Q0M PRN; As Directed PRN Reason: Hypoglycemia Ceftriaxone Sodium 1 gm/ (Syringe 0.4 ml/ Sterile Water) 10 mls @ 120 mls/hr SLOW IVP 0800 [facility] Last Admin: 08/24/17 08:53 Dose: 10 mls Insulin Human Lispro (Humalog) 0 units SC .MODERATE SLIDING SC PRN PRN Reason: Moderate Correctional Scale Last Admin: 08/23/17 17:52 Dose: 8 units Insulin Human Lispro (Humalog) 0 units SC .BEDTIME SLIDING SC PRN PRN Reason: Bedtime Correctional Scale Last Admin: 08/21/17 21:11 Dose: 3 unit Lisinopril (Zestril) 2.5 mg PO DAILY [facility] Last Admin: 08/24/17 08:40 Dose: 2.5 mg Loperamide HCl (Imodium) 2 mg PO PRN PRN PRN Reason: Diarrhea/Loose Stools Loratadine (Claritin) 10 mg PO DAILYPRN PRN PRN Reason: Sinus Symptoms Magnesium Hydroxide (Milk Of Magnesium) 30 ml PO DAILYPRN PRN PRN Reason: Constipation Mineral Oil/White Petrolatum (Eucerin Cream) 0 gm TOP BIDPRN PRN PRN Reason: Dry Skin Nitroglycerin (Nitrostat) 0.4 mg SL Q5MIN PRN PRN Reason: Chest Pain Ondansetron HCl (Zofran Odt) 4 mg PO Q6H PRN PRN Reason: Nausea/Vomiting Ondansetron HCl (Zofran) 4 mg IVP Q6H PRN PRN Reason: Nausea/Vomiting Pantoprazole Sodium (Protonix) 40 mg PO DAILY [facility] Last Admin: 08/24/17 08:40 Dose: 40 mg Phenol (Chloraseptic [place] 180 Ml Bot) 0 ml PO PRN PRN PRN Reason: Sore Throat Senna (Senokot) 2 tab PO HSPRN PRN PRN Reason: Constipation Simvastatin (Zocor) 10 mg PO HS [facility] Last Admin: 08/23/17 21:27 Dose: 10 mg Sodium Chloride ([place] Nasal [place] 0.65%) 0 ml EA NARE QIDPRN PRN PRN Reason: Nasal Congestion Zolpidem Tartrate (Ambien) 5 mg PO HSPRN PRN PRN Reason: Insomnia
[2017-08-24] MEDS: HumaLOG 300 UNITS/3 ML VIAL SC PRN ×2 (11:46→17:57)
[2017-08-24] MEDS: Diabetic Tussin 200 MG/10 ML UDCUP PO PRN (13:30)
[2017-08-24] MEDS: Simvastatin 5 MG TAB PO SCH (21:33)
[2017-08-25] MEDS: HumaLOG 300 UNITS/3 ML VIAL SC PRN ×3 (06:26→16:47)
[2017-08-25] MEDS: Allopurinol 100 MG TAB PO SCH (08:38)
[2017-08-25] MEDS: Clopidogrel Bisulfate 75 MG TAB PO SCH (08:38)
[2017-08-25] MEDS: Ubidecarenone 50 MG CAP PO SCH (08:38)
[2017-08-25] MEDS: Carvedilol 3.125 MG TAB PO SCH ×2 (08:38→19:57)
[2017-08-25] MEDS: Lisinopril 2.5 MG TAB PO SCH (08:38)
[2017-08-25] MEDS: Furosemide 40 MG/4 ML VIAL SLOW IVP SCH (08:40)
[2017-08-25] MEDS: Heparin 5,000 UNITS/ML VIAL SC SCH ×2 (08:40→20:32)
[2017-08-25] MEDS: Fluticasone Propionate Nasal Spray 16 gm Bottle NASAL SCH (08:55)
--- NOTE | 2017-08-25 12:35 | PDOC.PN ---
- Subjective Encounter Start Date: 08/25/17 Encounter Start Time: 10:00 -: old records requested/rev Patient seen and examined. No new complaints. No overnight events has cough, has dyspnea on exertion - Objective Resuscitation Status: Resuscitation Status FULL:Full Resuscitation MAR Reviewed: Yes Vital Signs & Weight: Vital Signs (12 hours) Temp Pulse Resp BP BP Pulse Ox 08/25/17 11:22 97.6 F 65 20 119/61 96 08/25/17 08:38 64 137/64 08/25/17 08:10 97.5 F L 64 20 96 08/25/17 07:38 996 H 08/25/17 07:36 62 20 99 08/25/17 07:15 97.5 F L 78 20 137/64 98 08/25/17 05:09 97.7 F 77 20 119/60 94 L 08/25/17 00:39 66 18 98 Weight Admit Weight 210 lb Weight 198 lb 8 oz I&O: 08/24/17 08/25/17 08/26/17 06:59 06:59 06:59 Intake Total 120 1470 Output Total 700 3200 Balance -580 -1730 Result Diagrams: 08/22/17 07:36 08/24/17 04:25 Additional Labs: Accuchecks 08/25/17 08/25/17 08/24/17 10:51 06:03 21:08 POC Glucose 219 H 207 H 185 H 08/24/17 17:20 POC Glucose 236 H EKG Reviewed by me: Yes (nsr) Phys Exam - Physical Examination Constitutional: NAD HEENT: PERRLA, moist MMs, sclera anicteric Neck: no JVD, supple reduced air entry at base Cardiovascular: RRR, no significant murmur, no rub Gastrointestinal: soft, non-tender, no distention, positive bowel sounds Musculoskeletal: pulses present, edema present josue+, right BKA Neurological: non-focal Lymphatic: no nodes Psychiatric: normal affect Skin: no rash, normal turgor Dx/Plan (1) Acute kidney failure Status: Acute Comment: cardiorenal syndrome (2) Acute on chronic combined systolic and diastolic CHF (congestive heart failure) Code(s): I50.43 - ACUTE ON CHRONIC COMBINED SYSTOLIC AND DIASTOLIC HRT FAIL Status: Acute (3) Hypomagnesemia Code(s): E83.42 - HYPOMAGNESEMIA Status: Resolved (4) Pleural effusion, right Code(s): J90 - PLEURAL EFFUSION, NOT ELSEWHERE CLASSIFIED Status: Acute (5) UTI (urinary tract infection) Status: Acute (6) Anemia, normocytic normochromic Code(s): D64.9 - ANEMIA, UNSPECIFIED Status: Chronic (7) CAD (coronary artery disease) Code(s): I25.10 - ATHSCL HEART DISEASE OF [place] CORONARY ARTERY W/O ANG PCTRS Status: Chronic (8) Dyslipidemia Code(s): E78.5 - HYPERLIPIDEMIA, UNSPECIFIED Status: Chronic Comment: (9) Glaucoma Code(s): H40.9 - UNSPECIFIED GLAUCOMA Status: Chronic (10) Gout Code(s): M10.9 - GOUT, UNSPECIFIED Status: Chronic (11) Hypertension Code(s): I10 - ESSENTIAL (PRIMARY) HYPERTENSION Status: Chronic Qualifiers: Comment: (12) PVD (peripheral vascular disease) Code(s): I73.9 - PERIPHERAL VASCULAR DISEASE, UNSPECIFIED Status: Chronic - Plan cont current plan of care * continue IV lasix * still has edema and effusion, and needs more diuresis * will repeat labs tomorrow * pulmonary consulted to decide if pt will benefit from thoracentesis * medication reviewed as below * symptomatic treatment. Review of Systems - Review of Systems Constitutional: negative: fever, chills, sweats, weakness, malaise, other Eyes: negative: Pain, Vision Change, Conjunctivae Inflammation, Eyelid Inflammation, Redness, Other ENT: negative: Ear Pain, Ear Discharge, Nose Pain, Nose Discharge, Nose Congestion, Mouth Pain, Mouth Swelling, Throat Pain, Throat Swelling, Other Respiratory: Cough, SOB with Excertion. negative: Dry, Shortness of Breath, Hemoptysis, Pleuritic Pain, Sputum, Wheezing Cardiovascular: edema. negative: chest pain, palpitations, orthopnea, paroxysmal nocturnal dyspnea, light headedness, other Gastrointestinal: negative: Nausea, Vomiting, Abdominal Pain, Diarrhea, Constipation, Melena, Hematochezia, Other Genitourinary: negative: Dysuria, Frequency, Incontinence, Hematuria, Retention , Other Musculoskeletal: negative: Neck Pain, Shoulder Pain, Arm Pain, Back Pain, Hand Pain, Leg Pain, Foot Pain, Other Skin: negative: Rash, Lesions, Sridhar, Bruising, Other - Medications/Allergies Allergies/Adverse Reactions: Allergies Allergy/AdvReac Type Severity Reaction Status Date / Time amoxicillin Allergy Verified 08/21/17 13:13 codeine Allergy Verified 08/21/17 13:13 levofloxacin [From Levaquin] Allergy Verified 08/21/17 13:13 naproxen Allergy Verified 08/21/17 13:13 Medications: Current Medications Acetaminophen (Tylenol) 650 mg PO Q4H PRN PRN Reason: Headache/Fever or Pain Al Hydroxide/Mg Hydroxide (Maalox) 30 ml PO Q6H PRN PRN Reason: Heartburn or Indigestion Albuterol/Ipratropium (Duoneb) 3 ml NEB [id number] [facility] Last Admin: 08/25/17 07:36 Dose: 3 ml Allopurinol (Zyloprim) 100 mg PO DAILY [facility] Last Admin: 08/25/17 08:38 Dose: 100 mg Artificial Tears (Tears Naturale) 0 drop EA EYE PRN PRN PRN Reason: Dry Eyes Aspirin (Aspirin Chewable) 81 mg PO DAILY [facility] Last Admin: 08/25/17 08:38 Dose: 81 mg Benzonatate (Tessalon) 100 mg PO Q4H PRN PRN Reason: Cough Last Admin: 08/22/17 20:48 Dose: 100 mg Carvedilol (Coreg) 3.125 mg PO BID-[facility] Last Admin: 08/25/17 08:38 Dose: 3.125 mg Clopidogrel Bisulfate (Plavix) 75 mg PO DAILY [facility] Last Admin: 08/25/17 08:38 Dose: 75 mg Coenzyme Q10 (Coenzyme Q10) 100 mg PO DAILY [facility] Last Admin: 08/25/17 08:38 Dose: 100 mg Dextrose/Water (Dextrose 50%) 25 gm SLOW IVP PRN PRN PRN Reason: Hypoglycemia Fluticasone Propionate (Flonase Nasal [place]) 0 gm NASAL DAILY [facility] Last Admin: 08/25/17 08:55 Dose: 2 spr Furosemide (Lasix) 40 mg SLOW IVP DAILY [facility] Last Admin: 08/25/17 08:40 Dose: 40 mg Glucagon (Glucagon) 1 mg IM PRN PRN PRN Reason: Hypoglycemia Guaifenesin (Robitussin Sf) 200 mg PO Q4H PRN PRN Reason: Cough Last Admin: 08/24/17 13:30 Dose: 200 mg Heparin Sodium (Porcine) (Heparin) 5,000 units SC BID [facility] Last Admin: 08/25/17 08:40 Dose: 5,000 units Hydralazine HCl (Apresoline) 10 mg SLOW IVP Q4H PRN PRN Reason: Systolic BP > 180 Dextrose/Water (D5w) 1,000 mls @ 0 mls/hr IV .Q0M PRN; As Directed PRN Reason: Hypoglycemia Insulin Human Lispro (Humalog) 0 units SC .MODERATE SLIDING SC PRN PRN Reason: Moderate Correctional Scale Last Admin: 08/25/17 11:48 Dose: 4 units Insulin Human Lispro (Humalog) 0 units SC .BEDTIME SLIDING SC PRN PRN Reason: Bedtime Correctional Scale Last Admin: 08/21/17 21:11 Dose: 3 unit Lisinopril (Zestril) 2.5 mg PO DAILY [facility] Last Admin: 08/25/17 08:38 Dose: 2.5 mg Loperamide HCl (Imodium) 2 mg PO PRN PRN PRN Reason: Diarrhea/Loose Stools Loratadine (Claritin) 10 mg PO DAILYPRN PRN PRN Reason: Sinus Symptoms Magnesium Hydroxide (Milk Of Magnesium) 30 ml PO DAILYPRN PRN PRN Reason: Constipation Mineral Oil/White Petrolatum (Eucerin Cream) 0 gm TOP BIDPRN PRN PRN Reason: Dry Skin Nitroglycerin (Nitrostat) 0.4 mg SL Q5MIN PRN PRN Reason: Chest Pain Ondansetron HCl (Zofran Odt) 4 mg PO Q6H PRN PRN Reason: Nausea/Vomiting Ondansetron HCl (Zofran) 4 mg IVP Q6H PRN PRN Reason: Nausea/Vomiting Pantoprazole Sodium (Protonix) 40 mg PO DAILY [facility] Last Admin: 08/25/17 08:38 Dose: 40 mg Phenol (Chloraseptic [place] 180 Ml Bot) 0 ml PO PRN PRN PRN Reason: Sore Throat Senna (Senokot) 2 tab PO HSPRN PRN PRN Reason: Constipation Simvastatin (Zocor) 10 mg PO HS [facility] Last Admin: 08/24/17 21:33 Dose: 10 mg Sodium Chloride ([place] Nasal [place] 0.65%) 0 ml EA NARE QIDPRN PRN PRN Reason: Nasal Congestion Zolpidem Tartrate (Ambien) 5 mg PO HSPRN PRN PRN Reason: Insomnia
[2017-08-25] MEDS: Simvastatin 5 MG TAB PO SCH (20:32)
--- NOTE | 2017-08-25 23:05 | CON ---
DATE OF CONSULTATION: 08/25/2017 HISTORY OF PRESENT ILLNESS: Mr. Snyder is a 77-year-old male. He has fairly extensive records in the computer. He was admitted on 08/21/2017 with congestive heart failure. He says he feels fine. When I examined him, he was lying flat in bed. Reviewing records and talking to him, he went to the emergency department with complaints of increasi ng shortness of breath and orthopnea. He also was noticing his legs are starting to swell. He became dyspneic at rest, so he presented to [facility]. He was given Lasix and transferred here. He subsequently has been diuresed over 5 liters and so he feels 100% better. PAST MEDICAL HISTORY: 1. Remarkable for diastolic heart failure. 2. Systolic heart failure with an ejection fraction of 40%. 3. History of coronary artery disease. 4. History of hospitalization last August with gangrene of his left foot. 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 5. History of diabetes. 6. History of hypertension. 7. Lipid disorder. 8. Glaucoma. 9. Gout. 10. He had peripheral angiography done by Dr. Franks a year ago. 11. History of coronary bypass grafting in the past. 12. History of significant mitral regurgitation in the past. 13. History of right [id number] amputation. Dr. Mckeon amputated his left great toe. FAMILY HISTORY: Positive for vascular disease, diabetes, and hypertension. SOCIAL HISTORY: He is nonsmoker, nondrinker. His family cares for him. REVIEW OF SYSTEMS: Otherwise negative. He actually says he feels as though he is at his baseline. PHYSICAL EXAMINATION: VITAL SIGNS: He is afebrile, heart rate 63, respiratory rate is 20, oximetry is 96 on room air, bloo d pressure is 97/55. HEENT: Pupils are equal, sclerae is anicteric. He has a fairly long alexander. NECK: Supple. No lymphadenopathy. LUNGS: Remarkable for decreased breath sounds at the right base. HEART: Regular rhythm. ABDOMEN: Soft and nontender. LABORATORY DATA: White count is 4.9, hemoglobin 9.7, platelets 192. Sodium 138, potassium 4.5, chlo ride 103, bicarbonate 27, BUN 40, creatinine 1.93. Chest radiograph shows improvement of the effusion on the right, but not resolved. Still on IV Lasix. 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 This overwhelmingly is likely to be the cause of effusion. He is completely asymptomatic. Therefore, I would recommend tr eating "the patient and not the x-ray." If he becomes tachypneic or dyspneic or has any increase in size of this effusion, we can certainly tap him, but it is not indicated. Since he has been diuresed over 5 liters and his creatinine is increasing, I would probably considered converting him to p.o. m edications. He is also not hypoxic and he is completely flat in bed, so he might be a candidate for discharge to follow up with his primary care doctor and his stretch machine operator. ADDENDUM: Of the 70 minutes spent with the patient and reviewing records, 50% of the time was spent on the unit evaluating therapy, reviewing radiographs and conferring with the staff.
[2017-08-26] MEDS: Diabetic Tussin 200 MG/10 ML UDCUP PO PRN (02:34)
[2017-08-26 06:00] LABS: Anion Gap 14 mmol/L (10-20); BUN (Urea Nitrogen) 43 mg/dL (8.4-25.7); Calc. Creatinine Clearance 43 mL/min (70-130); Calcium 8.6 mg/dL (7.8-10.44); Carbon Dioxide 29 mmol/L (23-31); Chloride 99 mmol/L (98-107); Estimated GFR-MDRD 35; Glucose 205 mg/dL (83-110); Magnesium 1.5 mg/dL (1.6-2.6); Potassium 4.3 mmol/L (3.5-5.1); Sodium 138 mmol/L (136-145)
[2017-08-26] MEDS: HumaLOG 300 UNITS/3 ML VIAL SC PRN ×2 (06:09→11:47)
[2017-08-26 07:31] LABS: #Eosinphils 0.2 thou/uL (0.0-0.7); #Lymphocytes 1.3 thou/uL (1.20-3.40); #Monocytes 0.4 thou/uL (0.11-0.59); #Neutrophils 2.2 thou/uL (1.40-6.50); %Basophils 0.4 % (0.0-1.0); %Eosinophils 4.5 % (0.0-10.0); %Lymphocytes 32.6 % (21.0-51.0); %Monocytes 9.1 % (0.0-10.0); %Neutrophils 53.4 % (42.0-75.0); Anisocytosis SLIGHT = 6-15 cells (100X) (0-5/hpf); Hemoglobin 10.1 g/dL (14.0-18.0); MDiff Complete? YES; Mean Corpuscular HGB CONC 31.2 g/dL (32.0-36.0); Mean Corpuscular Hemoglobin 27.8 pg (27.0-31.0); Mean Corpuscular Volume 89.1 fl (80.0-94.0); Mean Platelet Volume 8.1 fL (7.4-10.4); Platelet Count 208 thou/uL (130-400); Polychromasia SLIGHT = 2-3 cells (100X) (0-2/hpf); Red Blood Cell (RBC) Count 3.61 mill/uL (4.70-6.10); White Blood Cell (WBC) Count 4.1 thou/uL (4.8-10.8)
[2017-08-26] MEDS: Allopurinol 100 MG TAB PO SCH (08:09)
[2017-08-26] MEDS: Ubidecarenone 50 MG CAP PO SCH (08:09)
[2017-08-26] MEDS: Heparin 5,000 UNITS/ML VIAL SC SCH ×2 (08:10→21:22)
[2017-08-26] MEDS: Lisinopril 2.5 MG TAB PO SCH (08:10)
[2017-08-26] MEDS: Clopidogrel Bisulfate 75 MG TAB PO SCH (08:10)
[2017-08-26] MEDS: Furosemide 40 MG/4 ML VIAL SLOW IVP SCH (08:10)
[2017-08-26] MEDS: Fluticasone Propionate Nasal Spray 16 gm Bottle NASAL SCH (08:10)
[2017-08-26] MEDS: Carvedilol 3.125 MG TAB PO SCH ×3 (08:11→16:50)
--- NOTE | 2017-08-26 14:06 | PDOC.PN ---
- Subjective Encounter Start Date: 08/26/17 Encounter Start Time: 14:04 Patient seen at bedside. No overnight events, no new complaints, denies SOB. - Objective Resuscitation Status: Resuscitation Status FULL:Full Resuscitation MAR Reviewed: Yes Vital Signs & Weight: Vital Signs (12 hours) Temp Pulse Resp BP Pulse Ox 08/26/17 12:34 96 08/26/17 12:27 69 18 96 08/26/17 12:00 97.5 F L 64 16 102/50 L 100 08/26/17 08:50 97.5 F L 64 16 96 08/26/17 08:10 67 08/26/17 08:00 97.6 F 67 16 99/51 L 96 08/26/17 06:52 68 18 96 08/26/17 03:42 97.9 F 67 16 98/55 L 93 L Weight Admit Weight 210 lb Weight 195 lb I&O: 08/25/17 08/26/17 08/27/17 06:59 06:59 06:59 Intake Total 1470 870 Output Total 3200 1999 Balance -1730 -1130 Result Diagrams: 08/26/17 04:29 08/26/17 04:29 Additional Labs: Accuchecks 08/26/17 08/26/17 08/25/17 10:44 04:30 20:28 POC Glucose 195 H 204 H 190 H 08/25/17 16:30 POC Glucose 189 H Phys Exam - Physical Examination Constitutional: NAD HEENT: moist MMs Neck: no nodes Respiratory: clear to auscultation bilateral Cardiovascular: RRR Gastrointestinal: soft 1+ edema in LLE, R BKA Neurological: moves all 4 limbs Psychiatric: A&O x 3 Dx/Plan (1) Acute kidney failure Status: Acute Comment: cardiorenal syndrome (2) Acute on chronic combined systolic and diastolic CHF (congestive heart failure) Code(s): I50.43 - ACUTE ON CHRONIC COMBINED SYSTOLIC AND DIASTOLIC HRT FAIL Status: Acute (3) Pleural effusion, right Code(s): J90 - PLEURAL EFFUSION, NOT ELSEWHERE CLASSIFIED Status: Acute (4) Dyslipidemia Code(s): E78.5 - HYPERLIPIDEMIA, UNSPECIFIED Status: Chronic Comment: - Plan cont current plan of care, PT/OT, social services counselor, DVT proph w/heparin * Continue with diuresis. Change Lasix to PO * Monitor BUN/Creatinine * Replete Magnesium * Appreciate Pulmonary input. No thoracentesis at this time * PT/OT
[2017-08-26] MEDS: Simvastatin 5 MG TAB PO SCH (21:19)
[2017-08-26] MEDS: Magnesium Oxide 400 MG TAB PO SCH (21:19)
[2017-08-27 05:24] LABS: ALT (SGPT) 15 U/L (8-55); AST (SGOT) 40 U/L (5-34); Albumin 2.5 g/dL (3.4-4.8); Alkaline Phosphatase 222 U/L (40-150); Anion Gap 12 mmol/L (10-20); BUN (Urea Nitrogen) 40 mg/dL (8.4-25.7); Bilirubin, Total 0.7 mg/dL (0.2-1.2); Calc. Creatinine Clearance 44 mL/min (70-130); Calcium 8.2 mg/dL (7.8-10.44); Carbon Dioxide 31 mmol/L (23-31); Chloride 98 mmol/L (98-107); Estimated GFR-MDRD 37; Globulin 3.5 g/dL (2.4-3.5); Glucose 202 mg/dL (83-110); Magnesium 1.5 mg/dL (1.6-2.6); Potassium 4.1 mmol/L (3.5-5.1); Sodium 137 mmol/L (136-145)
[2017-08-27] MEDS: Furosemide 40 MG TAB PO SCH (08:25)
[2017-08-27] MEDS: Ubidecarenone 50 MG CAP PO SCH (08:25)
[2017-08-27] MEDS: Heparin 5,000 UNITS/ML VIAL SC SCH ×2 (08:26→20:50)
[2017-08-27] MEDS: Diabetic Tussin 200 MG/10 ML UDCUP PO PRN (08:26)
[2017-08-27] MEDS: Magnesium Oxide 400 MG TAB PO SCH ×2 (08:26→20:50)
[2017-08-27] MEDS: Clopidogrel Bisulfate 75 MG TAB PO SCH (08:26)
[2017-08-27] MEDS: Allopurinol 100 MG TAB PO SCH (08:26)
[2017-08-27] MEDS: Lisinopril 2.5 MG TAB PO SCH (08:26)
[2017-08-27] MEDS: Carvedilol 3.125 MG TAB PO SCH ×2 (08:26→17:55)
[2017-08-27] MEDS: Fluticasone Propionate Nasal Spray 16 gm Bottle NASAL SCH (08:32)
[2017-08-27 08:34] VITALS: BMI 26.2
[2017-08-27] MEDS: HumaLOG 300 UNITS/3 ML VIAL SC PRN (13:53)
--- NOTE | 2017-08-27 14:36 | PDOC.PN ---
- Subjective Encounter Start Date: 08/27/17 Encounter Start Time: 14:35 Subjective: Pt seen and examined for CHF, CAD -: Pt denies any CP, N/V/D - Objective Resuscitation Status: Resuscitation Status FULL:Full Resuscitation MAR Reviewed: Yes Vital Signs & Weight: Vital Signs (12 hours) Temp Pulse Pulse Pulse Resp BP BP 08/27/17 11:55 97.5 F L 63 24 H 08/27/17 10:54 64 64 95/59 L 99/53 L 08/27/17 10:28 08/27/17 10:26 68 16 08/27/17 08:26 97.7 F 70 17 08/27/17 07:52 97.7 F 70 16 08/27/17 04:00 97.9 F 67 18 BP BP Pulse Ox 08/27/17 11:55 95/49 L 92 L 08/27/17 10:54 08/27/17 10:28 96 08/27/17 10:26 08/27/17 08:26 97 08/27/17 07:52 115/58 L 97 08/27/17 04:00 109/59 L 97 Weight Admit Weight 210 lb Weight 188 lb 6.4 oz I&O: 08/26/17 08/27/17 08/28/17 06:59 06:59 06:59 Intake Total 870 1500 630 Output Total 2000 2800 Balance -1130 -1300 630 Result Diagrams: 08/26/17 04:29 08/27/17 04:24 Additional Labs: Accuchecks 08/27/17 08/27/17 08/26/17 10:22 05:24 21:25 POC Glucose 208 H 189 H 213 H 08/26/17 17:16 POC Glucose 152 H Radiology Reviewed by me: Yes Phys Exam - Physical Examination HEENT: PERRLA, moist MMs, sclera anicteric, TM's clear, oral pharynx no lesions , 2+ tonsils Neck: no nodes, no JVD, supple, full ROM Respiratory: no wheezing, no rales, no rhonchi, wheezing present, clear to auscultation bilateral (Crackles B/L at bases) Cardiovascular: RRR, no significant murmur, no rub, gallop, irregular Gastrointestinal: soft, non-tender, no distention, positive bowel sounds Musculoskeletal: no edema (RT AKA) Dx/Plan (1) Acute on chronic combined systolic and diastolic CHF (congestive heart failure) Code(s): I50.43 - ACUTE ON CHRONIC COMBINED SYSTOLIC AND DIASTOLIC HRT FAIL Status: Acute (2) Pleural effusion, right Code(s): J90 - PLEURAL EFFUSION, NOT ELSEWHERE CLASSIFIED Status: Acute (3) CAD (coronary artery disease) Code(s): I25.10 - ATHSCL HEART DISEASE OF [place] CORONARY ARTERY W/O ANG PCTRS Status: Chronic (4) Dyslipidemia Code(s): E78.5 - HYPERLIPIDEMIA, UNSPECIFIED Status: Chronic Comment: - Plan Continue Diuretics, Intake , output -: PT consulted -: Awaiting Rehab Review of Systems - Review of Systems Constitutional: negative: fever, chills, sweats, weakness, malaise, other Eyes: negative: Pain, Vision Change, Conjunctivae Inflammation, Eyelid Inflammation, Redness, Other ENT: negative: Ear Pain, Ear Discharge, Nose Pain, Nose Discharge, Nose Congestion, Mouth Pain, Mouth Swelling, Throat Pain, Throat Swelling, Other Respiratory: Shortness of Breath Cardiovascular: negative: chest pain, palpitations, orthopnea, paroxysmal nocturnal dyspnea, edema, light headedness, other Gastrointestinal: negative: Nausea, Vomiting, Abdominal Pain, Diarrhea, Constipation, Melena, Hematochezia, Other Genitourinary: negative: Dysuria, Frequency, Incontinence, Hematuria, Retention , Other Musculoskeletal: negative: Neck Pain, Shoulder Pain, Arm Pain, Back Pain, Hand Pain, Leg Pain, Foot Pain, Other Skin: negative: Rash, Lesions, Sridhar, Bruising, Other - Medications/Allergies Allergies/Adverse Reactions: Allergies Allergy/AdvReac Type Severity Reaction Status Date / Time amoxicillin Allergy Verified 08/21/17 13:13 codeine Allergy Verified 08/21/17 13:13 levofloxacin [From Levaquin] Allergy Verified 08/21/17 13:13 naproxen Allergy Verified 08/21/17 13:13 Medications: Current Medications Acetaminophen (Tylenol) 650 mg PO Q4H PRN PRN Reason: Headache/Fever or Pain Al Hydroxide/Mg Hydroxide (Maalox) 30 ml PO Q6H PRN PRN Reason: Heartburn or Indigestion Albuterol/Ipratropium (Duoneb) 3 ml NEB [id number] KISHAN Last Admin: 08/27/17 10:26 Dose: 3 ml Allopurinol (Zyloprim) 100 mg PO DAILY [facility] Last Admin: 08/27/17 08:26 Dose: 100 mg Artificial Tears (Tears Naturale) 0 drop EA EYE PRN PRN PRN Reason: Dry Eyes Aspirin (Aspirin Chewable) 81 mg PO DAILY [facility] Last Admin: 08/27/17 08:26 Dose: 81 mg Benzonatate (Tessalon) 100 mg PO Q4H PRN PRN Reason: Cough Last Admin: 08/22/17 20:48 Dose: 100 mg Carvedilol (Coreg) 3.125 mg PO BID-[facility] Last Admin: 08/27/17 08:26 Dose: 3.125 mg Clopidogrel Bisulfate (Plavix) 75 mg PO DAILY [facility] Last Admin: 08/27/17 08:26 Dose: 75 mg Coenzyme Q10 (Coenzyme Q10) 100 mg PO DAILY [facility] Last Admin: 08/27/17 08:25 Dose: 100 mg Dextrose/Water (Dextrose 50%) 25 gm SLOW IVP PRN PRN PRN Reason: Hypoglycemia Fluticasone Propionate (Flonase Nasal [place]) 0 gm NASAL DAILY [facility] Last Admin: 08/27/17 08:32 Dose: 2 spr Furosemide (Lasix) 40 mg PO DAILY-[facility] Last Admin: 08/27/17 08:25 Dose: 40 mg Glucagon (Glucagon) 1 mg IM PRN PRN PRN Reason: Hypoglycemia Guaifenesin (Robitussin Sf) 200 mg PO Q4H PRN PRN Reason: Cough Last Admin: 08/27/17 08:26 Dose: 200 mg Heparin Sodium (Porcine) (Heparin) 5,000 units SC BID [facility] Last Admin: 08/27/17 08:26 Dose: 5,000 units Hydralazine HCl (Apresoline) 10 mg SLOW IVP Q4H PRN PRN Reason: Systolic BP > 180 Dextrose/Water (D5w) 1,000 mls @ 0 mls/hr IV .Q0M PRN; As Directed PRN Reason: Hypoglycemia Insulin Human Lispro (Humalog) 0 units SC .MODERATE SLIDING SC PRN PRN Reason: Moderate Correctional Scale Last Admin: 08/27/17 13:53 Dose: 4 units Insulin Human Lispro (Humalog) 0 units SC .BEDTIME SLIDING SC PRN PRN Reason: Bedtime Correctional Scale Last Admin: 08/21/17 21:11 Dose: 3 unit Lisinopril (Zestril) 2.5 mg PO DAILY [facility] Last Admin: 08/27/17 08:26 Dose: 2.5 mg Loperamide HCl (Imodium) 2 mg PO PRN PRN PRN Reason: Diarrhea/Loose Stools Loratadine (Claritin) 10 mg PO DAILYPRN PRN PRN Reason: Sinus Symptoms Magnesium Hydroxide (Milk Of Magnesium) 30 ml PO DAILYPRN PRN PRN Reason: Constipation Magnesium Oxide (Magnesium Oxide) 400 mg PO BID [facility] Stop: 08/27/17 21:01 Last Admin: 08/27/17 08:26 Dose: 400 mg Mineral Oil/White Petrolatum (Eucerin Cream) 0 gm TOP BIDPRN PRN PRN Reason: Dry Skin Nitroglycerin (Nitrostat) 0.4 mg SL Q5MIN PRN PRN Reason: Chest Pain Ondansetron HCl (Zofran Odt) 4 mg PO Q6H PRN PRN Reason: Nausea/Vomiting Ondansetron HCl (Zofran) 4 mg IVP Q6H PRN PRN Reason: Nausea/Vomiting Pantoprazole Sodium (Protonix) 40 mg PO DAILY [facility] Last Admin: 08/27/17 08:25 Dose: 40 mg Phenol (Chloraseptic [place] 180 Ml Bot) 0 ml PO PRN PRN PRN Reason: Sore Throat Senna (Senokot) 2 tab PO HSPRN PRN PRN Reason: Constipation Simvastatin (Zocor) 10 mg PO [facility] Last Admin: 08/26/17 21:19 Dose: 10 mg Sodium Chloride ([place] Nasal [place] 0.65%) 0 ml EA NARE QIDPRN PRN PRN Reason: Nasal Congestion Zolpidem Tartrate (Ambien) 5 mg PO HSPRN PRN PRN Reason: Insomnia
[2017-08-27] MEDS: Simvastatin 5 MG TAB PO SCH (20:50)
[2017-08-28] MEDS: HumaLOG 300 UNITS/3 ML VIAL SC PRN ×2 (06:04→18:20)
[2017-08-28] MEDS: Ubidecarenone 50 MG CAP PO SCH (08:34)
[2017-08-28] MEDS: Diabetic Tussin 200 MG/10 ML UDCUP PO PRN ×2 (08:34→18:20)
[2017-08-28] MEDS: Fluticasone Propionate Nasal Spray 16 gm Bottle NASAL SCH (08:34)
[2017-08-28] MEDS: Lisinopril 2.5 MG TAB PO SCH (08:35)
[2017-08-28] MEDS: Furosemide 40 MG TAB PO SCH (08:35)
[2017-08-28] MEDS: Carvedilol 3.125 MG TAB PO SCH ×2 (08:35→18:21)
[2017-08-28] MEDS: Clopidogrel Bisulfate 75 MG TAB PO SCH (08:35)
[2017-08-28] MEDS: Allopurinol 100 MG TAB PO SCH (08:35)
[2017-08-28] MEDS: Heparin 5,000 UNITS/ML VIAL SC SCH (08:36)
[2017-08-28 16:08] VITALS: BP 107/54; TEMP 97.5
--- NOTE | 2017-08-29 06:51 | DIS ---
DATE OF ADMISSION: 08/22/2017 DATE OF DISCHARGE: 08/28/2017 ADMITTING DIAGNOSES: 1. Acute on chronic systolic and diastolic congestive heart failure, fluid overload. 2. Acute kidney failure. 3. Type 2 diabetes. 4. Coronary artery disease, history of bypass. 5. Hypertension. 6. Peripheral vascular disease. HOSPITAL COURSE: He is a 77-year-old man with history of above medical problems. He came in with fl uid overload with acute on chronic systolic heart failure. He was kept in the hospital and treated w ith diuretics, Lasix; fluid restrictions; and beta elvia and low-dose lisinopril. Cardiology consu lted and continued medical management. He did fine. He improved. Continued on current management. His BNP improved. PHYSICAL EXAMINATION: VITAL SIGNS: Discharge vital signs, pulse 64, blood pressure 107/54, respiratory rate 20, temperatur e 97.4. GENERAL: He is alert, oriented. NECK: Supple. No JVD. CHEST: Normal vesicular heart sounds. CARDIOVASCULAR: S1, S2 audible. No S3, S4. ABDOMEN: Soft. EXTREMITIES: No pedal edema. LABORATORY DATA: Urine had wbc too numerous to count. Urine culture came back negative. He was seamus ated with Rocephin 1 g for few days. His hemoglobin 10.1, hematocrit 32.2, platelets 208, MCV 89. B [employer] was 3096 when he came in. DISCHARGE MEDICATIONS: Nebulizer p.r.n., aspirin 81 daily, Coreg 3.125 twice daily, Plavix 75 daily, Flonase spray twice daily, Lasix 40 mg twice daily, heparin 5000 b.i.d., insulin sliding scale, Zest ril 2.5, Zocor 10 mg. FINAL DIAGNOSES: 1. Acute on chronic systolic with diastolic heart failure. 2. Acute kidney injury on chronic kidney disease. 3. Urinary tract infection, ruled out. 4. Peripheral vascular disease. 5. Coronary artery disease. PLAN: PT consulted and the patient accepted rehab.
--- NOTE | 2017-09-06 14:21 | PQF ---
ELZBIETA ESTRADA LALIT [id number] [address] [place] [address] [id number] CLINICAL DOCUMENTATION CLARIFICATION FORM: POST DISCHARGE Addendum to original discharge summary date: ____ Late entry note date: __ NATALIEELZBIETA [id number] PAYAL PANIAGUA MD PLEASE DOCUMENT YOUR RESPONSE BELOW PLEASE FAX RESPONSE BACK TO [phone] YOUR INPUT IS NEEDED TO CORRECTLY CODE A DIAGNOSIS FOR YOUR PATIENT. DATE: 09/06/16 ATTN: DR EDWARDS Please exercise your independent, professional judgment in responding to the clarification form. Clinical indicators are provided on the bottom of this form for your review Please check appropriate box(s) to clarify if the following diagnosis has been ruled in our ruled out: CKD documeneted on discharge Summary (CDI/Coding list diagnosis here) [ ] Ruled in diagnosis [ ] Continue to treat [ ] Resolved [ ] Ruled out diagnosis [ ] Cannot rule out diagnosis [ ] Other diagnosis [ ] Unable to determine PLEASE SPECIFY STAGE OF CKD IF RULED IN: In addition, please specify: Present on Admission (POA): [ ] Yes [ ] No [ ] Unable to determine For continuity of documentation, please document condition throughout progress notes and discharge summary. Thank You. CLINICAL INDICATORS - SIGNS / SYMPTOMS / LABS FREDDIE RISK FACTORS CHF FREDDIE DM 2 CAD HTN PVD TREATMENTS NA CKD IS DOCUMENTED ON THE DISCHARGE SUMMARY ONLY. PLEASE SPECIFY RULED IN OR OUT AND STAGE OF CKD. (This form is maintained as a part of the permanent medical record) 2014 [employer] All Rights Reserved Shari [email or web address] [phone] CANDACE
== END 2017-08-28 19:54 | DRG 291 ==
LOC: ERS 21:59 → ERHOLD 22:43 → OBSVTOIN 08-21 07:30 → 2SE 08-21 12:36
PROVIDERS: ADMIT Internal Medicine; ATTEND Internal Medicine
DX: I13.0 Hypertensive heart and chronic kidney disease with heart failure and stage 1 through stage 4 chronic kidney disease, or unspecified chronic kidney disease (principal); I50.43 Acute on chronic combined systolic (congestive) and diastolic (congestive) heart failure; N17.9 Acute kidney failure, unspecified; L89.151 Pressure ulcer of sacral region, stage 1; E11.51 Type 2 diabetes mellitus with diabetic peripheral angiopathy without gangrene; E11.69 Type 2 diabetes mellitus with other specified complication; I42.9 Cardiomyopathy, unspecified; E83.42 Hypomagnesemia; M86.9 Osteomyelitis, unspecified; D64.9 Anemia, unspecified; I34.0 Nonrheumatic mitral (valve) insufficiency; Z88.1 Allergy status to other antibiotic agents; Z88.5 Allergy status to narcotic agent; Z79.01 Long term (current) use of anticoagulants; Z79.82 Long term (current) use of aspirin; Z79.4 Long term (current) use of insulin; E78.5 Hyperlipidemia, unspecified; I25.10 Atherosclerotic heart disease of native coronary artery without angina pectoris; M10.9 Gout, unspecified; Z95.1 Presence of aortocoronary bypass graft; Z89.511 Acquired absence of right leg below knee; Z89.422 Acquired absence of other left toe(s); Z89.421 Acquired absence of other right toe(s); H40.9 Unspecified glaucoma; Z96.0 Presence of urogenital implants; N18.9 Chronic kidney disease, unspecified
CPT/HCPCS: 36415; 36416; 71010; 80048; 80053; 81001; 83735; 83880; 84484; 84550; 85025; 87086; 93306; 94640; 96372; 96374; A4216; G8978-GP-CM; G8979-GP-CL; J0696; J1644; J1940; J3475; J7620

== ENCOUNTER 2017-11-14 00:11 | Inpatient (IN) | payer MEDICARE, MEDICAID ==
[2017-11-14 01:15] LABS: #Eosinphils 0.7 thou/uL (0.0-0.7); #Lymphocytes 1.3 thou/uL (1.20-3.40); #Monocytes 0.7 thou/uL (0.11-0.59); #Neutrophils 4.9 thou/uL (1.40-6.50); %Basophils 0.2 % (0.0-1.0); %Eosinophils 9.6 % (0.0-10.0); %Lymphocytes 17.3 % (21.0-51.0); %Monocytes 8.7 % (0.0-10.0); %Neutrophils 64.2 % (42.0-75.0); Hemoglobin 8.6 g/dL (14.0-18.0); Mean Corpuscular HGB CONC 32.8 g/dL (32.0-36.0); Mean Corpuscular Hemoglobin 29.1 pg (27.0-31.0); Mean Corpuscular Volume 88.7 fl (80.0-94.0); Mean Platelet Volume 6.6 fL (7.4-10.4); Platelet Count 224 thou/uL (130-400); RBC Distribution Width 14.3 % (11.5-14.5); Red Blood Cell (RBC) Count 2.97 mill/uL (4.70-6.10); White Blood Cell (WBC) Count 7.6 thou/uL (4.8-10.8)
[2017-11-14 01:21] LABS: INR-International Normal Ratio 1.4; Prothrombin Time 17.6 SEC (12.0-14.7)
[2017-11-14 01:34] LABS: ALT (SGPT) 11 U/L (8-55); AST (SGOT) 23 U/L (5-34); Albumin 2.4 g/dL (3.4-4.8); Alkaline Phosphatase 208 U/L (40-150); Anion Gap 11 mmol/L (10-20); BUN (Urea Nitrogen) 92 mg/dL (8.4-25.7); Bilirubin, Total 0.4 mg/dL (0.2-1.2); Calc. Creatinine Clearance 0 mL/min (70-130); Carbon Dioxide 23 mmol/L (23-31); Chloride 102 mmol/L (98-107); Estimated GFR-MDRD 32; Globulin 3.2 g/dL (2.4-3.5); Glucose 209 mg/dL (83-110); Lipase 25 U/L (8-78); Protein, Total 5.6 g/dL (5.8-8.1); Sodium 131 mmol/L (136-145)
[2017-11-14] MEDS ORDERED: Furosemide 40 MG/4 ML VIAL ONE (01:47)
[2017-11-14] MEDS ORDERED: Sodium Chloride 0.9% 1,000 ML IV SCH (03:45)
[2017-11-14 04:08] VITALS: BMI 25.1
[2017-11-14] MEDS ORDERED: Dextrose 5% in Water 1,000 ML IV PRN ×2 (09:08→16:05)
[2017-11-14] MEDS ORDERED: HumaLOG 300 UNITS/3 ML VIAL SC PRN (09:08)
[2017-11-14] MEDS ORDERED: Dextrose 50% Abboject 50 ML SYRINGE SLOW IVP PRN ×2 (09:08→16:05)
[2017-11-14 09:48] LABS: Iron 15 ug/dL (65-175); Iron Binding Capacity, Total 183 mcg/dL (261-462)
[2017-11-14 09:52] LABS: HBCM Index 0.06 S/CO (0-0.79); HBSAg Index 0.25 S/CO (0-0.99); Hep A IgM AB Non-Reactive (NonReactive); Hep A IgM S/CO 0.08 S/CO (0-0.79); Hep B Surf Ag Non-Reactive S/CO (NonReactive); Hep C IgG Ab Non-Reactive (NonReactive); Hep C Index 0.12 S/CO (0-0.79); Hepatitis B Core IGM Abs Non-Reactive (NonReactive)
[2017-11-14] MEDS ORDERED: Bisacodyl 10 MG SUPP PR PRN (13:40)
[2017-11-14] MEDS: Heparin 5,000 UNITS/ML VIAL SC SCH ×2 (14:02→22:52)
[2017-11-14 15:36] LABS: Fluid, Glucose 303 mg/dL (Not Available); Fluid, LDH 87 U/L (Not Available)
[2017-11-14] MEDS: HumaLOG 300 UNITS/3 ML VIAL SC PRN ×2 (16:53→22:53)
--- NOTE | 2017-11-14 17:02 | ULT ---
SONOGRAPHIC GUIDED PARACENTESIS 11/14/16 HISTORY: New ascites. Abdominal pain and distention. FINDINGS: After explaining the procedure and answering all questions, sonographic survey shows moderate amount of free fluid throughout the abdomen. Right lower approach was planned. Sterile technique, buffered l ocal anesthesia, sonographic guidance, and a right lower quadrant anterior approach were used to care fully advance a 19 gauge Yueh needle and catheter into the free fluid. Position was confirmed with so nography. Catheter was left to drain a total volume of 2.8 liter slightly turbid greenish yellow liqu id. A portion of the liquid was sent to the Laboratory for analysis. Catheter was removed. Postproced ure imaging shows small amount of residual fluid. Patient tolerated the procedure well and was return ed in improved condition. IMPRESSION: Technically successful sonographic guided paracentesis. Pathology is pending. POS: [facility]
--- NOTE | 2017-11-14 22:03 | HP ---
PRIMARY CARE PHYSICIAN: Dr. Rafia Martinez. HISTORY OF PRESENT ILLNESS: I was asked to see this patient this morning and H&P is dictated after s eeing the patient this morning, the patient was admitted overnight. 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 The patient states that he has been noting his abdominal girth increasing. The patient states th at he was in [place] [facility]. Patient denies any shortness of breath, any chest pressure , chest discomfort, any nausea, vomiting, or diarrhea. Patient does not recall any significant abdom inal pain either. PAST MEDICAL HISTORY: 1. Diabetes type 2. 2. Coronary artery disease, bypass in 1994. 3. Hypertension. 4. Gout. 5. Hyperlipidemia. 6. Systolic heart failure. 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 SOCIAL HISTORY: Positive for alcohol use 12 years until about 10 years ago he stopped. Never used t obacco or drugs. ALLERGIES: AMOXICILLIN, CODEINE, NAPROXEN, and LEVOFLOXACIN. MEDICATIONS: The patient's medications are the following: Aspirin 81 mg daily, Plavix 75 mg daily, Coreg 6.25 mg p.o. b.i.d., allopurinol 100 mg daily, Lasix 40 mg b.i.d., Levemir 60 units daily, arnold nopril 5 mg daily, Losartan 100 mg daily, pravastatin 40 mg at bedtime, and Lasix 40 mg b.i.d. FAMILY HISTORY: Significant for diabetes and coronary artery disease. PHYSICAL EXAMINATION: VITAL SIGNS: Temperature 97.7, pulse of 59, respirations 18, 97% room air, and 118/75. GENERAL: The patient is awake, alert, oriented x3, does not appear in any distress. CARDIOVASCULAR: S1, S2 present. No murmurs, rubs, or gallops. LUNGS: Clear to auscultation. No rhonchi or wheezes noted. ABDOMEN: Significantly large, soft. Bowel sounds are present x2. No pain upon palpation. EXTREMITIES: He does have a left below the knee amputation brace and NIRAV wrapped and right stump maria luisa ears to be stable. LABORATORY DATA: WBC of 7.6, hemoglobin 8.6, hematocrit of 26.4, and platelets of 224. Sodium of 13 1, potassium 5.0, BUN of 92, creatinine of 2.02. Iron is 15, TIBC is 183. ProBNP is 2744, lipase 25 . The patient did have a CT abdomen and pelvis, which indicated the following. The patient has moderat e ascites, possible cirrhotic appearance in the liver, and bilateral pleural effusions. ASSESSMENT AND PLAN: The patient is a very pleasant 77-year-old male, who presents to the hospital w ith increased abdominal girth. 1. New onset of ascites. Differential including a possible portal congestion from his systolic hear t failure versus other hepatic disorders. The patient does have an EF of 38%. His LFTs except his a lkaline phosphatase is mildly elevated. LFTs are normal. Coagulation appears PT, PTT, and elevated INR of 1.4. We will get a diagnostic paracentesis; however, the patient does take Lasix, which might be difficult to see if patient's fluid is transudative versus exudative. Also, will check a hepatit is panel. We will also check autoimmune issues that can cause the patient's ascites, may also consid er right upper quadrant ultrasound to rule out any portal vein thrombosis. 2. Anemia. Patient's BUN is significantly elevated at 92. His baseline is about 50-40 and also his H&H is 8.6. We will check stool for occult blood. Also, will check iron studies. Patient is on as pirin and Plavix for his history of coronary artery disease. His anemia could be secondary to his ch ronic kidney disease versus acute blood loss, unsure. The patient intravascularly appears to be a li ttle dehydrated. He does not have significant edema except for his abdomen. We will hold Lasix for now, may be gently hydrated the patient a little bit. Type and screen, transfuse if H&H is less than 8. 3. Deep venous thrombosis prophylaxis. We will put the patient on sequential compression devices, n o heparin since the patient is anemic. However, looking back, his baseline is about 9.6. ProBNP is elevated; however, patient currently is not short of breath. He only has abdominal ascites and in th e setting of chronic kidney disease and the patient is clinically stable. I am not sure if this BNP numbers are relevant . We will continue to monitor this patient.
[2017-11-14] MEDS: Docusate 100 MG CAP PO SCH (22:52)
[2017-11-14] MEDS: Insulin Detemir 100 UNITS/ML 5 UNITS in Pre-Filled Syringe SC SCH (22:52)
[2017-11-14] MEDS: Carvedilol 3.125 MG TAB PO SCH (22:52)
[2017-11-15 05:59] LABS: Eosinophils 9 % (0-10); Hemoglobin 8.9 g/dL (14.0-18.0); Lymphocytes 16 % (21-51); MDiff Complete? YES; Mean Corpuscular HGB CONC 32.7 g/dL (32.0-36.0); Mean Corpuscular Hemoglobin 28.8 pg (27.0-31.0); Mean Corpuscular Volume 87.9 fl (80.0-94.0); Mean Platelet Volume 6.5 fL (7.4-10.4); Monocytes 6 % (0-10); Neutrophil 69 % (42-75); Platelet Count 268 thou/uL (130-400); White Blood Cell (WBC) Count 8.1 thou/uL (4.8-10.8)
[2017-11-15] MEDS: Docusate 100 MG CAP PO SCH ×2 (08:52→20:29)
[2017-11-15] MEDS: Carvedilol 3.125 MG TAB PO SCH ×2 (08:52→20:30)
[2017-11-15] MEDS: Heparin 5,000 UNITS/ML VIAL SC SCH ×3 (08:52→20:30)
[2017-11-15 10:31] LABS: ALT (SGPT) 11 U/L (8-55); AST (SGOT) 28 U/L (5-34); Albumin 2.1 g/dL (3.4-4.8); Alkaline Phosphatase 196 U/L (40-150); Anion Gap 12 mmol/L (10-20); BUN (Urea Nitrogen) 72 mg/dL (8.4-25.7); Bilirubin, Total 0.4 mg/dL (0.2-1.2); Calc. Creatinine Clearance 45 mL/min (70-130); Carbon Dioxide 20 mmol/L (23-31); Chloride 106 mmol/L (98-107); Estimated GFR-MDRD 41; Globulin 3.3 g/dL (2.4-3.5); Glucose 109 mg/dL (83-110); LDH 307 U/L (125-220); Potassium 4.9 mmol/L (3.5-5.1); Protein, Total 5.4 g/dL (5.8-8.1); Sodium 133 mmol/L (136-145)
[2017-11-15 11:31] LABS: BF Color Yellow; Body Fluid Source Ascites Body Fluid; Clarity Hazy (Clear); RBC Background Count 0.003; Tube # EDTA
[2017-11-15 11:46] LABS: BF RBC Count - Manual 800 /cumm
[2017-11-15 11:48] LABS: WBC/NonHematic-Auto 1290 /cumm
[2017-11-15 12:14] LABS: BF Segmented Neutrophils 62 %; Cell Count Non Hematic 25 %; Lymphocytes 13 %
[2017-11-15] MEDS ORDERED: Sodium Chloride 0.9% 1,000 ML IV SCH (12:45)
--- NOTE | 2017-11-15 17:54 | ULT ---
HEPATIC/ABDOMINAL DOPPLER ULTRASOUND 11/15/17 INDICATION: New onset ascites. FINDINGS: There is mild enlargement of the liver measuring slightly greater than 16 cm in length. The liver dem onstrates heterogeneous echotexture. There is no acute gallbladder pathology. The spleen is mildly en larged measuring greater than 14 cm in length. No evidence of Davenport's sign reported by the sonograph er. Common duct is within normal limits at 5 mm in diameter. The pancreas is obscured from view by selene wel gas which does limit assessment. Incidental note of bilateral pleural fluid. There is also mild a bdominal ascites. Doppler evaluation of the hepatic and portal venous systems reveals patency and appropriate direction of flow. There is arterial doppler listed from the hepatic artery. Splenic artery is not demonstrate d. IMPRESSION: 1. Findings which indicate third spacing of fluid with ascites and pleural fluid. Correlate clin ically. 2. Coarsened echotexture of the liver. Correlate with liver function enzymes. 3. Normal doppler assessment of the hepatic portal venous systems. The spleen is not imaged on t he basis of this exam. POS: [facility]
--- NOTE | 2017-11-15 18:56 | PDOC.PN ---
- Subjective Encounter Start Date: 11/15/17 Encounter Start Time: 13:00 Subjective: pt up in bed no complains - Objective Resuscitation Status: Resuscitation Status FULL:Full Resuscitation Vital Signs & Weight: Vital Signs (12 hours) Temp Pulse Resp BP Pulse Ox 11/15/17 17:52 97.7 F 67 16 136/79 97 11/15/17 12:00 97.9 F 60 18 109/68 100 11/15/17 08:00 98.0 F 60 18 119/74 97 Weight Weight 180 lb I&O: 11/14/17 11/15/17 11/16/17 06:59 06:59 06:59 Intake Total 10 330 Output Total 350 515 Balance -340 -185 Result Diagrams: 11/15/17 04:31 11/15/17 09:59 Additional Labs: Accuchecks 11/15/17 11/15/17 11/15/17 16:39 12:05 05:09 POC Glucose 139 H 133 H 98 11/14/17 20:36 POC Glucose 242 H Phys Exam - Physical Examination HEENT: PERRLA Neck: no nodes, no JVD Respiratory: no wheezing, no rales Cardiovascular: RRR, no significant murmur Gastrointestinal: soft, non-tender Musculoskeletal: no edema Dx/Plan - Plan * . 1) new dx of ascites 2) abdominal pain 3) cirrhosis dx via imagining 4) anemia plan: pt underwent paracentesis drained 2.8L, SAAG is <1.1 but pt was on lasix. hepatitis panel pending. pt's abdominal pain has improved. cirrhosis possible due to portal congestion. Hepatic ultrasound no thrombosis. pt's occult blood positive will consult gi Review of Systems - Review of Systems ENT: negative: Ear Pain, Ear Discharge, Nose Pain, Nose Discharge, Nose Congestion, Mouth Pain, Mouth Swelling, Throat Pain, Throat Swelling, Other Respiratory: negative: Cough, Dry, Shortness of Breath, Hemoptysis, SOB with Excertion, Pleuritic Pain, Sputum, Wheezing Cardiovascular: negative: chest pain, palpitations, orthopnea, paroxysmal nocturnal dyspnea, edema, light headedness, other Gastrointestinal: negative: Nausea, Vomiting, Abdominal Pain, Diarrhea, Constipation, Melena, Hematochezia, Other - Medications/Allergies Allergies/Adverse Reactions: Allergies Allergy/AdvReac Type Severity Reaction Status Date / Time amoxicillin Allergy Verified 11/14/17 04:15 codeine Allergy Verified 11/14/17 04:15 levofloxacin [From Levaquin] Allergy Verified 11/14/17 04:15 naproxen Allergy Verified 11/14/17 04:15 Medications: Current Medications Aspirin (Aspirin Chewable) 81 mg PO DAILY [facility] Bisacodyl (Dulcolax) 10 mg NC DAILYPRN PRN PRN Reason: Constipation Carvedilol (Coreg) 6.25 mg PO BID [facility] Last Admin: 11/15/17 08:52 Dose: 6.25 mg Clopidogrel Bisulfate (Plavix) 75 mg PO QPM [facility] Dextrose/Water (Dextrose 50%) 25 gm SLOW IVP PRN PRN PRN Reason: Hypoglycemia Docusate Sodium (Colace) 100 mg PO BID [facility] Last Admin: 11/15/17 08:52 Dose: 100 mg Glucagon (Glucagon) 1 mg IM PRN PRN PRN Reason: Hypoglycemia Heparin Sodium (Porcine) (Heparin) 5,000 units SC TID [facility] Last Admin: 11/15/17 15:08 Dose: 5,000 units Dextrose/Water (D5w) 1,000 mls @ 0 mls/hr IV .Q0M PRN; As Directed PRN Reason: Hypoglycemia Insulin Detemir 5 units/ (Miscellaneous Medication) 0.05 mls @ 0 mls/hr SC [facility] Last Admin: 11/14/17 22:52 Dose: 0.05 mls Insulin Human Lispro (Humalog) 0 units SC .MODERATE SLIDING SC PRN PRN Reason: Moderate Correctional Scale Last Admin: 11/14/17 16:53 Dose: 8 units Insulin Human Lispro (Humalog) 0 units SC .BEDTIME SLIDING SC PRN; Protocol PRN Reason: BEDTIME SLIDING SCALE Last Admin: 11/14/17 22:53 Dose: 2 unit Lactulose (Lactulose) 20 gm PO DAILYPRN PRN PRN Reason: Constipation Sodium Chloride (Flush - Normal Saline) 10 ml IVF PRN PRN PRN Reason: Saline Flush
[2017-11-15] MEDS: Insulin Detemir 100 UNITS/ML 5 UNITS in Pre-Filled Syringe SC SCH (20:30)
[2017-11-15] MEDS: Clopidogrel Bisulfate 75 MG TAB PO SCH (20:30)
--- NOTE | 2017-11-15 23:14 | CON ---
DATE OF CONSULTATION: 11/15/2017 HISTORY OF PRESENT ILLNESS: The patient is a 77-year-old male with increasing abdominal gi rth. He denies any nausea or vomiting. He denies any abdominal pain. He denies any recent weight l oss. He underwent a paracentesis recently. PAST MEDICAL HISTORY: Significant for diabetes mellitus, coronary artery disease and bypass, chronic congestive heart failure with an EF of 38%, hypertension, hyperlipidemia, gout, chronic kidney disea se. PAST SURGICAL HISTORY: Includes right [id number] amputation. Left [id number]-[id number] amputation, co ronary artery bypass, paracentesis. SOCIAL HISTORY: Does not smoke or drink. ALLERGIES: He denies any allergies, but according to the electronic medical record. He is allergic to AMOXICILLIN, CODEINE, NAPROXEN and LEVOFLOXACIN. HOME MEDICATIONS: Include CoQ10 200 mg p.o. daily, pravastatin 40 mg p.o. daily at bedtime, multivit howard, losartan 100 mg p.o. q.a.m., Lantiseptic 113 grams b.i.d., Humalog insulin sliding scale, Lasix 40 mg p.o. b.i.d., famotidine 20 mg p.o. b.i.d., Colace 100 mg p.o. b.i.d., Plavix 75 mg p.o. every day, Coreg 6.25 mg p.o. b.i.d., aspirin 81 mg p.o. daily, Zyloprim 100 mg p.o. q.p.m. FAMILY HISTORY: Negative for GI or liver disease. REVIEW OF SYSTEMS: Constitutional: No fever or chills. No weight loss. Eyes: No blurred vision o r double vision. ENT: No sore throat or earaches. Cardiovascular: No chest pain or palpitation. Pulmonary: No shortness of breath, cough or wheezing. Gastrointestinal: See above. : No hematu kenna or dysuria. Musculoskeletal: Positive for recent amputation. Neurologic: No numbness or seizu re activity. PHYSICAL EXAMINATION: GENERAL: Shows well-developed, well-nourished, white male in no acute distress. VITAL SIGNS: Temperature 97.9, pulse 60, respiratory rate 18, blood pressure 109/68. CHEST: Clear. CARDIOVASCULAR: Regular rate and rhythm. ABDOMEN: Soft, protuberant without organomegaly or masses. Positive fluid wave. He has paracentesi s bandage in the right lower quadrant. EXTREMITIES: Show his previous amputations. RECTAL: Deferred. LABORATORY DATA: Shows paracentesis fluid with 1290 white blood cells, 62% neutrophils. Fluid album in is 1.6.: CBC shows a white blood cell count of 8.2, hemoglobin 8.8, hematocrit 26.8, platelet cou nt is 239,000. PT is 17.6 with an INR of 1.4. Laboratory shows sodium 133, CO2 of 20, BUN 72, creat inine 1.65, alkaline phosphatase 196. LDH 307, total protein 54, albumin 2.1. IMAGING: Abdominal ultrasound is pending. Previous abdominal and pelvic CT, both with and without c ontrast, commented on nodule of liver with bilateral pleural effusions and ascites, borderline spleno megaly is noted and anasarca is seen with a small contracted gallbladder, small fat containing perium bilical hernia is noted. ASSESSMENT: 1. New onset ascites -- possibilities would include cardiac versus cirrhosis. Patient's serum to as cites gradient is 2.1-1.6 leaving serum ascites gradient of 0.5 indicating that the patient does not have portal hypertension. Other possibilities as mentioned would be the cardiac. This certainly cou ld be possible with his bilateral pleural effusions and heart history. 2. History of coronary artery disease. 3. History of congestive heart failure with EF of 38%. 4. Peripheral vascular disease with bilateral lower extremity amputations. 5. Chronic kidney disease. 6. Possible SBP. The patient has 60% neutrophils with 1290 white blood cells. RECOMMENDATIONS: 1. Antibiotics to cover SBP. 2. Begin spironolactone. 3. We will review echocardiogram.
[2017-11-16] MEDS: HumaLOG 300 UNITS/3 ML VIAL SC PRN ×2 (07:10→12:01)
[2017-11-16] MEDS: Docusate 100 MG CAP PO SCH ×2 (08:56→20:55)
[2017-11-16] MEDS: Heparin 5,000 UNITS/ML VIAL SC SCH ×3 (08:57→20:55)
[2017-11-16] MEDS: Carvedilol 3.125 MG TAB PO SCH ×2 (08:57→20:55)
[2017-11-16] MEDS ORDERED: cefTRIAXone Sodium 1 MG in Syringe 0 ML IVPB SCH (10:30)
[2017-11-16] MEDS: cefTRIAXone\\ROCEPHIN 1 GM, Syringe 0.4 ML in Sterile Water 9.6 ML SLOW IVP SCH (12:07)
--- NOTE | 2017-11-16 15:58 | DIS ---
DATE OF ADMISSION: 11/14/2017 DATE OF DISCHARGE: 11/16/2017 DISCHARGE DIAGNOSES: 1. New onset ascites, most likely cardiac related. 2. Acute on chronic kidney disease. 3. Abdominal pain. 4. Cirrhosis, diagnosed on imaging. 5. Anemia. HOSPITAL COURSE: The patient is a very pleasant, however, complicated 77-year-old male with signific ant past medical history of systolic heart failure, currently compensated, bilateral lower extremity amputation, and diabetes, who initially was sent from [facility] for increasing abdominal girth and abdominal pain. The patient was seen in the ER, underwent a CT abdomen and pelvis, which indicated cirrhotic appearance of the liver and stable bilateral pleural effusions and also a borderline spleno megaly and ascites. The patient at that time underwent a paracentesis the following day, and 2.8 lit ers of yellow hazy fluid was removed. The patient tolerated the procedure well. The patient's WBCs at that time was 1290 and out of that 62% were neutrophils. The patient's segs was less than 1.1. G I was consulted for positive occult blood in the stool and anemia. GI recommended outpatient followu p for possible EGD. The patient currently is on aspirin, Plavix, and his H&H has been stable. The p atient was put on ceftriaxone for possible SBP. His abdomen pain post-paracentesis has resolved. Trung mayorga, I did speak with GI, recommend putting it for 7 days since the patient is allergic to LEVOFLOX ACIN, I am not sure if this is an allergy because of his cardiac issues. We will start the patient o n Omnicef and Flagyl for seven days. Patient will follow up with GI as an outpatient for the results of his cytology of the fluid. So far, the microbiology of the fluid has been negative. The patient will resume his Lasix b.i.d. I will not add any additional medications for his worsening volume ove rload. Patient on discharge has been stable. PHYSICAL EXAMINATION: VITAL SIGNS: Today, temperature is 98.2, pulse of 60, respirations of 20, O2 98% on room air, and 11 2/67 blood pressure: GENERAL: The patient is awake, alert, oriented x3, does not appear in distress. CV: S1, S2 present. No murmurs, rubs, or gallops. ABDOMEN: Soft. Bowel sounds are present x2. Nontender upon palpation. LUNGS: Clear to auscultation. DISCHARGE MEDICATIONS: Aspirin 81 mg daily, allopurinol 100 mg daily, Coreg 6.25 mg p.o. b.i.d., Omn icef 300 mg p.o. b.i.d., Plavix 75 mg p.o. q.p.m., Colace 100 mg p.o. b.i.d., Pepcid 20 mg p.o. b.i.d ., and Lasix 40 mg p.o. b.i.d., I am going to change that to 40 mg daily, Humalog sliding scale, losa rtan 100 mg p.o. q.a.m., Flagyl 500 mg p.o. q.8 hours, Nystatin one application topical b.i.d., Prava chol 40 mg at bedtime. I try to call the and update her for followup; however, I left a message as she did not answer t he phone call. We will call the again for an update. Patient will need a followup for his cyto logy as an outpatient. We will continue the Lasix 40 daily, and the patient will be discharged back to his senior care facility. Consultants were GI.
--- NOTE | 2017-11-16 16:05 | PDOC.PN ---
- Subjective Encounter Start Date: 11/16/17 Encounter Start Time: 12:45 Subjective: pt up in bed no complains - Objective Resuscitation Status: Resuscitation Status FULL:Full Resuscitation Vital Signs & Weight: Vital Signs (12 hours) Temp Pulse Resp BP Pulse Ox 11/16/17 08:00 98.2 F 58 L 20 112/67 98 Weight Weight 180 lb I&O: 11/15/17 11/16/17 11/17/17 06:59 06:59 06:59 Intake Total 330 Output Total 515 Balance -185 Result Diagrams: 11/15/17 04:31 11/15/17 09:59 Additional Labs: Accuchecks 11/16/17 11/16/17 11/15/17 11:31 05:09 19:59 POC Glucose 182 H 170 H 156 H 11/15/17 16:39 POC Glucose 139 H Phys Exam - Physical Examination HEENT: PERRLA Neck: no nodes Respiratory: no wheezing Cardiovascular: RRR, no significant murmur Gastrointestinal: soft, non-tender Musculoskeletal: edema present pt has amputation of his right below the knee and left below the knee Neurological: non-focal Dx/Plan - Plan ) new dx of ascites 2) abdominal pain 3) cirrhosis dx via imagining 4) anemia 5) elevated neutrophils possible sbp plan: pt underwent paracentesis drained 2.8L, SAAG is <1.1 but pt was on lasix. hepatitis panel pending. pt's abdominal pain has improved. cirrhosis possible due to portal congestion. Hepatic ultrasound no thrombosis. pt's occult blood positive will consult gi 11/16 pt started on ceftriaxone. pt was discharged but unable to go today since there was no referral sent to his swing bed. discharge summary is done for this pt. * . Review of Systems - Review of Systems Eyes: negative: Pain, Vision Change, Conjunctivae Inflammation, Eyelid Inflammation, Redness, Other ENT: negative: Ear Pain, Ear Discharge, Nose Pain, Nose Discharge, Nose Congestion, Mouth Pain, Mouth Swelling, Throat Pain, Throat Swelling, Other Respiratory: negative: Cough, Dry, Shortness of Breath, Hemoptysis, SOB with Excertion, Pleuritic Pain, Sputum, Wheezing Cardiovascular: negative: chest pain, palpitations, orthopnea, paroxysmal nocturnal dyspnea, edema, light headedness, other - Medications/Allergies Allergies/Adverse Reactions: Allergies Allergy/AdvReac Type Severity Reaction Status Date / Time amoxicillin Allergy Verified 11/14/17 04:15 codeine Allergy Verified 11/14/17 04:15 levofloxacin [From Levaquin] Allergy Verified 11/14/17 04:15 naproxen Allergy Verified 11/14/17 04:15 Medications: Current Medications Aspirin (Aspirin Chewable) 81 mg PO DAILY [facility] Last Admin: 11/16/17 08:56 Dose: 81 mg Bisacodyl (Dulcolax) 10 mg [place] DAILYPRN PRN PRN Reason: Constipation Carvedilol (Coreg) 6.25 mg PO BID [facility] Last Admin: 11/16/17 08:57 Dose: Not Given Clopidogrel Bisulfate (Plavix) 75 mg PO QPM [facility] Last Admin: 11/15/17 20:30 Dose: 75 mg Dextrose/Water (Dextrose 50%) 25 gm SLOW IVP PRN PRN PRN Reason: Hypoglycemia Docusate Sodium (Colace) 100 mg PO BID [facility] Last Admin: 11/16/17 08:56 Dose: Not Given Furosemide (Lasix) 40 mg PO 0900,1400 [facility] Glucagon (Glucagon) 1 mg IM PRN PRN PRN Reason: Hypoglycemia Heparin Sodium (Porcine) (Heparin) 5,000 units SC TID [facility] Last Admin: 11/16/17 14:44 Dose: 5,000 units Dextrose/Water (D5w) 1,000 mls @ 0 mls/hr IV .Q0M PRN; As Directed PRN Reason: Hypoglycemia Insulin Detemir 5 units/ (Miscellaneous Medication) 0.05 mls @ 0 mls/hr SC HS [facility] Last Admin: 11/15/17 20:30 Dose: 0.05 mls Ceftriaxone Sodium 1 gm/ (Syringe 0.4 ml/ Sterile Water) 10 mls @ 120 mls/hr SLOW IVP 1100 [facility] Last Admin: 11/16/17 12:07 Dose: 10 mls Insulin Human Lispro (Humalog) 0 units SC .MODERATE SLIDING SC PRN PRN Reason: Moderate Correctional Scale Last Admin: 11/16/17 12:01 Dose: 2 units Insulin Human Lispro (Humalog) 0 units SC .BEDTIME SLIDING SC PRN; Protocol PRN Reason: BEDTIME SLIDING SCALE Last Admin: 11/14/17 22:53 Dose: 2 unit Lactulose (Lactulose) 20 gm PO DAILYPRN PRN PRN Reason: Constipation Sodium Chloride (Flush - Normal Saline) 10 ml IVF PRN PRN PRN Reason: Saline Flush
[2017-11-16 16:46] LABS: Anion Gap 13 mmol/L (10-20); BUN (Urea Nitrogen) 58 mg/dL (8.4-25.7); Calc. Creatinine Clearance 55 mL/min (70-130); Calcium 8.1 mg/dL (7.8-10.44); Carbon Dioxide 22 mmol/L (23-31); Chloride 107 mmol/L (98-107); Estimated GFR-MDRD 52; Glucose 149 mg/dL (83-110); Potassium 4.5 mmol/L (3.5-5.1); Sodium 137 mmol/L (136-145)
--- NOTE | 2017-11-16 17:33 | PRG ---
DATE OF SERVICE: 11/16/2017 SUBJECTIVE: The patient is doing well. He is not complaining of any abdominal pain, nausea, vomitin g. His bowels are moving normally. OBJECTIVE: VITAL SIGNS: Temperature 98.2, pulse 58, respiratory rate 20, blood pressure 112/67. CHEST: Clear. CARDIOVASCULAR: Regular rate and rhythm. ABDOMEN: Soft and nontender without organomegaly or masses. Bowel sounds are present and normoactiv e. EXTREMITIES: Shows previous amputations. LABORATORY DATA AND IMAGING DATA: No repeat CBC was performed. Chemistry; no repeat chemistries are noted. Hepatitis panel is negative. Abdominal ultrasound shows findings which indicate third spaci ng of fluid with ascites and pleural effusion. of the liver. Normal hepatic portal venous system. ASSESSMENT: 1. Cardiac ascites - no evidence for portal hypertension. 2. Coronary artery disease. 3. Congestive heart failure with cardiomyopathy. 4. Peripheral vascular disease. 5. Chronic kidney disease. 6. Possible small bowel peritonitis - patient has a high neutrophils and was started on an antibioti c yesterday. RECOMMENDATIONS: 1. Continue antibiotic for 7 days. 2. Begin spironolactone. 3. Paracentesis on a p.r.n. basis.
[2017-11-16] MEDS: Clopidogrel Bisulfate 75 MG TAB PO SCH (20:55)
[2017-11-16] MEDS: Insulin Detemir 100 UNITS/ML 5 UNITS in Pre-Filled Syringe SC SCH (20:56)
[2017-11-17] MEDS ORDERED: Spironolactone 25 MG TAB PO SCH (08:00)
[2017-11-17] MEDS: Furosemide 40 MG TAB PO SCH ×2 (09:44→15:25)
[2017-11-17] MEDS: Heparin 5,000 UNITS/ML VIAL SC SCH ×3 (09:44→20:48)
[2017-11-17] MEDS: Carvedilol 3.125 MG TAB PO SCH ×2 (09:46→20:48)
[2017-11-17] MEDS: Docusate 100 MG CAP PO SCH ×2 (09:46→20:48)
[2017-11-17] MEDS: cefTRIAXone\\ROCEPHIN 1 GM, Syringe 0.4 ML in Sterile Water 9.6 ML SLOW IVP SCH (10:24)
--- NOTE | 2017-11-17 11:54 | PDOC.PN ---
- Subjective Encounter Start Date: 11/17/17 Encounter Start Time: 12:05 Subjective: No new complaints. -: No acute events overnight. - Objective Resuscitation Status: Resuscitation Status FULL:Full Resuscitation MAR Reviewed: Yes Vital Signs & Weight: Vital Signs (12 hours) Temp Pulse Resp BP Pulse Ox 11/17/17 07:47 97.8 F 61 16 110/70 99 Weight Weight 180 lb I&O: 11/16/17 11/17/17 11/18/17 06:59 06:59 06:59 Intake Total 330 Output Total 515 Balance -185 Result Diagrams: 11/15/17 04:31 11/16/17 16:20 Additional Labs: Accuchecks 11/17/17 11/16/17 11/16/17 04:26 20:03 17:03 POC Glucose 100 188 H 154 H 11/16/17 11:31 POC Glucose 182 H Phys Exam - Physical Examination Constitutional: NAD HEENT: PERRLA, moist MMs, sclera anicteric Neck: supple, full ROM Respiratory: no wheezing, no rales, no rhonchi, clear to auscultation bilateral Cardiovascular: RRR, no significant murmur, no rub Gastrointestinal: soft, non-tender, no distention, positive bowel sounds Musculoskeletal: edema present Neurological: non-focal b/l LE amputations. Psychiatric: normal affect Skin: no rash, normal turgor Dx/Plan (1) Cirrhosis of liver with ascites Code(s): K74.60 - UNSPECIFIED CIRRHOSIS OF LIVER Status: Acute Qualifiers: Hepatic cirrhosis type: unspecified hepatic cirrhosis Qualified Code(s): K74.60 - Unspecified cirrhosis of liver Comment: s/p paracentesis. On furosemide and spironolactone. (2) PVD (peripheral vascular disease) Code(s): I73.9 - PERIPHERAL VASCULAR DISEASE, UNSPECIFIED Status: Chronic Comment: Stable, continue home medications. (3) Anemia, normocytic normochromic Code(s): D64.9 - ANEMIA, UNSPECIFIED Status: Chronic (4) CAD (coronary artery disease) Code(s): I25.10 - ATHSCL HEART DISEASE OF [place] CORONARY ARTERY W/O ANG PCTRS Status: Chronic Qualifiers: Coronary Disease-Associated Artery/Lesion type: unspecified vessel or lesion type [place] vs. transplanted heart: [place] heart Associated angina: without angina Qualified Code(s): I25.10 - Atherosclerotic heart disease of [place] coronary artery without angina pectoris Comment: Chest pain free. Stable. Continue home medications. (5) Dyslipidemia Code(s): E78.5 - HYPERLIPIDEMIA, UNSPECIFIED Status: Chronic Comment: Continue Statins. (6) Hypertension Code(s): I10 - ESSENTIAL (PRIMARY) HYPERTENSION Status: Chronic Qualifiers: Hypertension type: essential hypertension Comment: At goal. Continue current regimen. (7) Chronic systolic heart failure Code(s): I50.22 - CHRONIC SYSTOLIC (CONGESTIVE) HEART FAILURE Status: Acute Comment: Stable. Not in acute exacerbation. Continue current regimen. (8) CKD stage 3 secondary to diabetes Code(s): E11.22 - TYPE 2 DIABETES MELLITUS W DIABETIC CHRONIC KIDNEY DISEASE; N18.3 - CHRONIC KIDNEY DISEASE, STAGE 3 (MODERATE) Status: Chronic Comment: Stable. (9) Diabetes mellitus, insulin dependent (IDDM), controlled Code(s): E11.9 - TYPE 2 DIABETES MELLITUS WITHOUT COMPLICATIONS; Z79.4 - ENERGY TRADING ANALYST (CURRENT) USE OF INSULIN Status: Acute Comment: Fairly well controlled. Continue current regimen. - Plan cont current plan of care, continue antibiotics, DVT proph w/heparin Awaiting swing bed assignment. * . Review of Systems - Medications/Allergies Allergies/Adverse Reactions: Allergies Allergy/AdvReac Type Severity Reaction Status Date / Time amoxicillin Allergy Verified 11/14/17 04:15 codeine Allergy Verified 11/14/17 04:15 levofloxacin [From Levaquin] Allergy Verified 11/14/17 04:15 naproxen Allergy Verified 11/14/17 04:15 Medications: Current Medications Aspirin (Aspirin Chewable) 81 mg PO DAILY [facility] Last Admin: 11/17/17 09:44 Dose: 81 mg Bisacodyl (Dulcolax) 10 mg [place] DAILYPRN PRN PRN Reason: Constipation Carvedilol (Coreg) 6.25 mg PO BID [facility] Last Admin: 11/17/17 09:46 Dose: Not Given Clopidogrel Bisulfate (Plavix) 75 mg PO QPM [facility] Last Admin: 11/16/17 20:55 Dose: 75 mg Dextrose/Water (Dextrose 50%) 25 gm SLOW IVP PRN PRN PRN Reason: Hypoglycemia Docusate Sodium (Colace) 100 mg PO BID [facility] Last Admin: 11/17/17 09:46 Dose: Not Given Furosemide (Lasix) 40 mg PO 0900,1400 [facility] Last Admin: 11/17/17 09:44 Dose: 40 mg Glucagon (Glucagon) 1 mg IM PRN PRN PRN Reason: Hypoglycemia Heparin Sodium (Porcine) (Heparin) 5,000 units SC TID [facility] Last Admin: 11/17/17 09:44 Dose: 5,000 units Dextrose/Water (D5w) 1,000 mls @ 0 mls/hr IV .Q0M PRN; As Directed PRN Reason: Hypoglycemia Insulin Detemir 5 units/ (Miscellaneous Medication) 0.05 mls @ 0 mls/hr SC HS [facility] Last Admin: 11/16/17 20:56 Dose: 0.05 mls Ceftriaxone Sodium 1 gm/ (Syringe 0.4 ml/ Sterile Water) 10 mls @ 120 mls/hr SLOW IVP 1100 [facility] Last Admin: 11/17/17 10:24 Dose: 10 mls Insulin Human Lispro (Humalog) 0 units SC .MODERATE SLIDING SC PRN PRN Reason: Moderate Correctional Scale Last Admin: 11/16/17 12:01 Dose: 2 units Insulin Human Lispro (Humalog) 0 units SC .BEDTIME SLIDING SC PRN; Protocol PRN Reason: BEDTIME SLIDING SCALE Last Admin: 11/14/17 22:53 Dose: 2 unit Lactulose (Lactulose) 20 gm PO DAILYPRN PRN PRN Reason: Constipation Sodium Chloride (Flush - Normal Saline) 10 ml IVF PRN PRN PRN Reason: Saline Flush
[2017-11-17] MEDS: HumaLOG 300 UNITS/3 ML VIAL SC PRN ×3 (13:46→20:49)
[2017-11-17] MEDS: Insulin Detemir 100 UNITS/ML 5 UNITS in Pre-Filled Syringe SC SCH (20:48)
[2017-11-17] MEDS: Clopidogrel Bisulfate 75 MG TAB PO SCH (20:48)
[2017-11-17] MEDS ORDERED: Atorvastatin Calcium 10 MG TAB PO SCH (21:00)
[2017-11-17] MEDS ORDERED: Lantiseptic Ointment 130 GM JAR TOP SCH (21:00)
[2017-11-17] MEDS: Nystatin Ointment 15 GM TUBE TOP SCH (21:49)
[2017-11-18] MEDS ORDERED: Spironolactone 100 MG TAB PO SCH (08:00)
[2017-11-18] MEDS: Furosemide 40 MG TAB PO SCH ×2 (08:25→13:18)
[2017-11-18] MEDS: Carvedilol 3.125 MG TAB PO SCH (08:25)
[2017-11-18] MEDS: Docusate 100 MG CAP PO SCH (08:26)
[2017-11-18] MEDS: Heparin 5,000 UNITS/ML VIAL SC SCH ×2 (08:28→16:53)
[2017-11-18] MEDS ORDERED: Aquaphor 30 GM JAR TOP SCH (09:00)
[2017-11-18] MEDS: cefTRIAXone\\ROCEPHIN 1 GM, Syringe 0.4 ML in Sterile Water 9.6 ML SLOW IVP SCH (11:00)
[2017-11-18] MEDS: Nystatin Ointment 15 GM TUBE TOP SCH (11:01)
--- NOTE | 2017-11-18 13:05 | PDOC.PN ---
- Subjective Encounter Start Date: 11/18/17 Encounter Start Time: 13:04 Subjective: Doing very well today. Has no complaints and looking forward to discharge -: No acute events overnight - Objective Resuscitation Status: Resuscitation Status FULL:Full Resuscitation MAR Reviewed: Yes Vital Signs & Weight: Vital Signs (12 hours) Temp Pulse Resp BP Pulse Ox 11/18/17 11:37 97.8 F 85 16 116/69 98 11/18/17 08:00 98.3 F 64 16 139/86 98 Weight Weight 180 lb I&O: 11/17/17 11/18/17 11/19/17 06:59 06:59 06:59 Intake Total 360 Balance 360 Result Diagrams: 11/15/17 04:31 11/16/17 16:20 Additional Labs: Accuchecks 11/18/17 11/18/17 11/17/17 11:18 05:38 19:43 POC Glucose 166 H 92 286 H 11/17/17 16:38 POC Glucose 204 H Phys Exam - Physical Examination Constitutional: NAD HEENT: PERRLA, moist MMs, sclera anicteric Neck: no JVD, supple, full ROM Respiratory: no wheezing, no rales, no rhonchi, clear to auscultation bilateral Cardiovascular: RRR, no significant murmur, no rub Gastrointestinal: soft, non-tender, no distention, positive bowel sounds Musculoskeletal: no edema, pulses present Neurological: non-focal b/l lower extremity amputations Psychiatric: normal affect, A&O x 3 Skin: no rash, normal turgor Dx/Plan (1) Cirrhosis of liver with ascites Code(s): K74.60 - UNSPECIFIED CIRRHOSIS OF LIVER Status: Acute Qualifiers: Hepatic cirrhosis type: unspecified hepatic cirrhosis Qualified Code(s): K74.60 - Unspecified cirrhosis of liver Comment: Stable. s/p paracentesis. On furosemide and spironolactone. (2) PVD (peripheral vascular disease) Code(s): I73.9 - PERIPHERAL VASCULAR DISEASE, UNSPECIFIED Status: Chronic Comment: Stable, continue home medications. (3) Anemia, normocytic normochromic Code(s): D64.9 - ANEMIA, UNSPECIFIED Status: Chronic Comment: Stable. (4) CAD (coronary artery disease) Code(s): I25.10 - ATHSCL HEART DISEASE OF [place] CORONARY ARTERY W/O ANG PCTRS Status: Chronic Qualifiers: Coronary Disease-Associated Artery/Lesion type: unspecified vessel or lesion type [place] vs. transplanted heart: [place] heart Associated angina: without angina Qualified Code(s): I25.10 - Atherosclerotic heart disease of [place] coronary artery without angina pectoris Comment: Chest pain free. Stable. Continue home medications. (5) Dyslipidemia Code(s): E78.5 - HYPERLIPIDEMIA, UNSPECIFIED Status: Chronic Comment: Continue Statins. (6) Hypertension Code(s): I10 - ESSENTIAL (PRIMARY) HYPERTENSION Status: Chronic Qualifiers: Hypertension type: essential hypertension Comment: At goal. Continue current regimen. (7) Chronic systolic heart failure Code(s): I50.22 - CHRONIC SYSTOLIC (CONGESTIVE) HEART FAILURE Status: Acute Comment: Stable. Not in acute exacerbation. Continue current regimen. (8) CKD stage 3 secondary to diabetes Code(s): E11.22 - TYPE 2 DIABETES MELLITUS W DIABETIC CHRONIC KIDNEY DISEASE; N18.3 - CHRONIC KIDNEY DISEASE, STAGE 3 (MODERATE) Status: Chronic Comment: Stable. (9) Diabetes mellitus, insulin dependent (IDDM), controlled Code(s): E11.9 - TYPE 2 DIABETES MELLITUS WITHOUT COMPLICATIONS; Z79.4 - ENVIRONMENTAL REMEDIATION CONSULTANT (CURRENT) USE OF INSULIN Status: Acute Comment: Fairly well controlled. Continue current regimen. - Plan cont current plan of care * . Review of Systems - Medications/Allergies Allergies/Adverse Reactions: Allergies Allergy/AdvReac Type Severity Reaction Status Date / Time amoxicillin Allergy Verified 11/14/17 04:15 codeine Allergy Verified 11/14/17 04:15 levofloxacin [From Levaquin] Allergy Verified 11/14/17 04:15 naproxen Allergy Verified 11/14/17 04:15 Medications: Current Medications Aspirin (Aspirin Chewable) 81 mg PO DAILY [facility] Last Admin: 11/18/17 08:25 Dose: 81 mg Atorvastatin Calcium (Lipitor) 10 mg PO HS [facility] Last Admin: 11/17/17 20:47 Dose: 10 mg Bisacodyl (Dulcolax) 10 mg [place] DAILYPRN PRN PRN Reason: Constipation Carvedilol (Coreg) 6.25 mg PO BID [facility] Last Admin: 11/18/17 08:25 Dose: 6.25 mg Clopidogrel Bisulfate (Plavix) 75 mg PO QPM [facility] Last Admin: 11/17/17 20:48 Dose: 75 mg Dextrose/Water (Dextrose 50%) 25 gm SLOW IVP PRN PRN PRN Reason: Hypoglycemia Docusate Sodium (Colace) 100 mg PO BID [facility] Last Admin: 11/18/17 08:26 Dose: 100 mg Furosemide (Lasix) 40 mg PO 0900,1400 [facility] Last Admin: 11/18/17 08:25 Dose: 40 mg Glucagon (Glucagon) 1 mg IM PRN PRN PRN Reason: Hypoglycemia Heparin Sodium (Porcine) (Heparin) 5,000 units SC TID [facility] Last Admin: 11/18/17 08:28 Dose: 5,000 units Dextrose/Water (D5w) 1,000 mls @ 0 mls/hr IV .Q0M PRN; As Directed PRN Reason: Hypoglycemia Insulin Detemir 5 units/ (Miscellaneous Medication) 0.05 mls @ 0 mls/hr SC HS [facility] Last Admin: 11/17/17 20:48 Dose: 0.05 mls Ceftriaxone Sodium 1 gm/ (Syringe 0.4 ml/ Sterile Water) 10 mls @ 120 mls/hr SLOW IVP 1100 [facility] Last Admin: 11/18/17 11:00 Dose: 10 mls Insulin Human Lispro (Humalog) 0 units SC .MODERATE SLIDING SC PRN PRN Reason: Moderate Correctional Scale Last Admin: 11/17/17 18:50 Dose: 4 units Insulin Human Lispro (Humalog) 0 units SC .BEDTIME SLIDING SC PRN; Protocol PRN Reason: BEDTIME SLIDING SCALE Last Admin: 11/17/17 20:49 Dose: 3 unit Lactulose (Lactulose) 20 gm PO DAILYPRN PRN PRN Reason: Constipation Last Admin: 11/18/17 05:41 Dose: 20 gm Mineral Oil/White Petrolatum (Aquaphor 30 Gm) 0 gm TOP BID [facility] Last Admin: 11/18/17 11:02 Dose: 1 applic Nystatin (Mycostatin Ointment) 0 gm TOP BID [facility] Last Admin: 11/18/17 11:01 Dose: 1 applic Sodium Chloride (Flush - Normal Saline) 10 ml IVF PRN PRN PRN Reason: Saline Flush Spironolactone (Aldactone) 100 mg PO QAM-WM [facility] Last Admin: 11/18/17 11:01 Dose: 100 mg
[2017-11-18] MEDS: HumaLOG 300 UNITS/3 ML VIAL SC PRN ×2 (13:16→16:53)
--- NOTE | 2017-11-18 15:13 | DIS ---
DATE OF ADMISSION: 11/14/2017 DATE OF DISCHARGE: 11/16/2017 HOSPITAL COURSE: This is a 77-year-old patient with a history of systolic heart failure, bilateral lower extremity amputation and diabetes who was admitted for a long term due to his ascites. He is status post paracentesis and doing well. He was initially discharged on 11/16/2017, but due to unavailability of beds, he ended up staying until today. He has been found at bed and will be discharged today. He was seen and examined today. For details , please refer to today's progress notes. The only change to his medications includes addition of spironolactone for diuresis and he has a history of cirrhosis versus ascites. All other information contained in the discharge summary from 11/16/2017 remains valid. Please refer to that discharge summary for full information. CARE GOALS: He is to follow up with his primary care physician within 1 week of discharge. We will repeat labs and blood pressure checks. ACTIVITY: To resume as tolerated. Time of discharge is 20 minutes including chart review and documentation. CANDACE
[2017-11-18 17:34] VITALS: BP 114/82; TEMP 98.2
== END 2017-11-18 18:20 | disposition swing bed (61) | DRG 291 ==
LOC: ERS 00:11 → T4-A 01:34
PROVIDERS: ADMIT Internal Medicine; ATTEND Internal Medicine
PROC: 0W9G3ZX Drainage of Peritoneal Cavity, Percutaneous Approach, Diagnostic (ICD-10-PCS; principal; 2017-11-16)
DX: I11.0 Hypertensive heart disease with heart failure (principal); K65.2 Spontaneous bacterial peritonitis; E86.0 Dehydration; E11.22 Type 2 diabetes mellitus with diabetic chronic kidney disease; I42.9 Cardiomyopathy, unspecified; I73.9 Peripheral vascular disease, unspecified; N18.3 Chronic kidney disease, stage 3 (moderate); I50.22 Chronic systolic (congestive) heart failure; D50.9 Iron deficiency anemia, unspecified; E78.5 Hyperlipidemia, unspecified; Z89.512 Acquired absence of left leg below knee; Z89.511 Acquired absence of right leg below knee; M10.9 Gout, unspecified; Z95.1 Presence of aortocoronary bypass graft; Z88.1 Allergy status to other antibiotic agents; Z88.5 Allergy status to narcotic agent; Z88.8 Allergy status to other drugs, medicaments and biological substances; Z79.01 Long term (current) use of anticoagulants; Z79.82 Long term (current) use of aspirin; I25.10 Atherosclerotic heart disease of native coronary artery without angina pectoris; K74.60 Unspecified cirrhosis of liver; Z79.4 Long term (current) use of insulin; I50.810 Right heart failure, unspecified
CPT/HCPCS: 36415; 36416; 49083; 76705; 80048; 80053; 80074; 82042; 82274; 82945; 83540; 83550; 83615; 83690; 83880; 84157; 85007; 85025; 85027; 85060; 85610; 85730; 87070; 87205; 88112; 88305; 89051; 96374; A4216; G8978-GP-CL; G8979-GP-CK; G8987-GO-CK; G8988-GO-CI; J0696; J1644; J1815; J1940